=== PATIENT | female | born 1945 | race Caucasian/White ===

== ENCOUNTER 2016-02-12 19:56 | Inpatient (IN) | payer MEDICARE, MEDICAID ==
[~2016-02-12] VITALS: Ht 152.4 cm; Wt 49.9 kg
[~2016-02-12 19:56] MED LIST: ALBU8.5H2 IH; CARI350T PO; CIPR-263 PO; DIPH1TAB70 PO; FLUT16SP2 NS; FLUT1DIS3 IH; FURO80TA PO; GABA300C PO; HYDR-429 PO; LISI40TA4 PO; LORA2TAB95 PO; METR500T PO; NORTRIPTYLINE; PAXIL; PRIMPRO PO; SYNTHROID PO
[2016-02-12] MEDS ORDERED: IV NS 0.9% 2,000 ML ONE (20:20)
[2016-02-12] MEDS ORDERED: IV NS 0.9% 1,000 ML BAG IV ONE ×4 (20:30→21:30)
[2016-02-12 20:40] LABS: KETONES,URINE Negative (NEGATIVE); LEUKOCYTE ESTERASE ,URINE Moderate (NEGATIVE); PH,URINE 5.5 (5.0-8.0)
[2016-02-12 20:41] LABS: ADD UA MICROSCOPIC YES
[2016-02-12 20:42] LABS: BASOPHILS % (AUTO) 0.1 % (0.0-2.0); DIFF TOTAL % 100 %; EOSINOPHILS # (AUTO) 0.3 /CMM (0.0-0.7); HEMATOCRIT 39 % (33-45); HEMOGLOBIN 12.8 g/dL (11.5-14.8); LYMPHOCYTES # (AUTO) 1.6 /CMM (0.8-4.8); LYMPHOCYTES % (AUTO) 5.1 % (20.0-44.0); MEAN CORPUSCULAR HEMOGLOBIN 28 PG (26.0-33.0); MEAN CORPUSCULAR HGB CONC 33 g/dl (31.0-36.0); MEAN CORPUSCULAR VOLUME 85 fL (82-100); MONOCYTES # (AUTO) 1.9 /CMM (0.1-1.30); MONOCYTES % (AUTO) 6.1 % (2.0-12.0); NEUTROPHILS # (AUTO) 27.4 /CMM (1.8-8.9); NEUTROPHILS % (AUTO) 87.7 % (43.0-81.0); PLATELET COUNT (AUTO) 562 /CMM (150-450); RED BLOOD CELL COUNT(AUTO) 4.56 MIL/uL (4.0-5.2)
[2016-02-12 20:44] LABS: WHITE BLOOD COUNT (AUTO) 31.2 K/uL (4.3-11.0)
[2016-02-12 20:49] LABS: ADD URINE CULTURE YES; HYALINE CASTS, URINE Few /LPF (None Seen); MUCUS,URINE Moderate /LPF (None Seen)
[2016-02-12 20:56] LABS: ANION GAP 18 (5-14); CALCIUM, SERUM 8.5 mg/dL (8.5-10.1); CARBON DIOXIDE 24 mmol/L (21-32); CHLORIDE 95 mmol/L (98-107); CREATININE 2.3 mg/dL (0.6-1.3); GFR 21 mL/min (>60); GLUCOSE 130 mg/dL (74-106); POTASSIUM 3.6 mmol/L (3.5-5.1); SODIUM SERUM 133 mmol/L (136-145); UREA NITROGEN, BLOOD 42 mg/dL (7-18)
[2016-02-12 21:00] LABS: INR 1.05 (0.87-1.13)
[2016-02-12] MEDS ORDERED: VANCOMYCIN 1 GM in IV D5W 250 ML IV ONE (21:00)
[2016-02-12] MEDS ORDERED: LEVOFLOXACIN 750 MG /D5W 150ML PIGGYBACK IV ONE (21:00)
[2016-02-12 21:02] LABS: ALANINE AMINOTRANSFERASE 20 U/L (12-78); ALBUMIN 3.6 g/dL (3.4-5.0); ASPARTATE AMINOTRANSFERASE 23 U/L (15-37); BILIRUBIN,DIRECT 0.1 mg/dL (0.0-0.2); BILIRUBIN,TOTAL 0.5 mg/dL (0.2-1.0); INDIRECT BILIRUBIN 0.4 mg/dL (0.0-1.1); TOTAL PROTEIN, SERUM 6.9 g/dL (6.4-8.2)
[2016-02-12 21:04] LABS: TROPONIN I < 0.017 ng/mL (0.00-0.056)
[2016-02-12] MEDS ORDERED: VANCOMYCIN 1 GM VIAL ONE (21:08)
[2016-02-12] MEDS ORDERED: LEVOFLOXACIN 750 MG /D5W 150ML 150 ML IV ONE (21:09)
[2016-02-12] MEDS ORDERED: IV SET PRIMARY PUMP SET 1 EA INFUS.SET MC ONE (21:09)
[2016-02-12] MEDS ORDERED: IV D5W 250 ML IV ONE (21:09)
[2016-02-12 21:10] LABS: EOSINOPHILS % (MANUAL) 1 % (0-4); LYMPHOCYTES % (MANUAL) 6 % (16-48)
[2016-02-12 21:12] LABS: PLATELET ESTIMATE INCREASED
[2016-02-12 21:14] LABS: ANISOCYTOSIS 1+
[2016-02-12 21:15] LABS: LACTIC ACID 1.9 mmol/L (0.4-2.0)
[2016-02-12] MEDS ORDERED: IV NS 0.9% 1,000 ML ONE (21:23)
[2016-02-12 23:40] VITALS: BP 128/58
[2016-02-13] VITALS (7 sets, daily range): BP systolic 112–151; BP diastolic 40–80
[2016-02-13] MEDS ORDERED: ONDANSETRON HCL/PF 4 MG/2 ML VIAL ONE (00:52)
[2016-02-13] MEDS: ONDANSETRON HCL/PF 4 MG/2 ML VIAL IVP PRN (00:58)
[2016-02-13] MEDS ORDERED: ZOLPIDEM TARTRATE 5 MG TABLET PO PRN (01:00)
[2016-02-13] MEDS ORDERED: Z GUARD REMEDY 2 OZ OINT TP PRN (01:00)
[2016-02-13] MEDS ORDERED: HYDROCODONE/APAP 5/325MG 1 EACH TABLET PO PRN (01:00)
[2016-02-13] MEDS ORDERED: MAG HYDROX/AL HYDROX/SIMETH 30 ML UDC PO PRN (01:00)
[2016-02-13] MEDS ORDERED: MORPHINE SULFATE INJ 2 MG/ML DISP.SYRIN IV PRN (01:00)
[2016-02-13] MEDS ORDERED: MAGNESIUM HYDROXIDE 30 ML UDC PO PRN (01:00)
[2016-02-13] MEDS ORDERED: ALBUTEROL SULFATE 8 GM HFA.AER.AD IH PRN (01:30)
[2016-02-13] MEDS ORDERED: DICYCLOMINE HCL 10 MG CAPSULE PO PRN (03:00)
[2016-02-13] MEDS ORDERED: DICY20TA11 PO (03:27)
[2016-02-13] MEDS ORDERED: OMEP20TA20 PO (03:28)
[2016-02-13] MEDS ORDERED: HYDR473S4 PO (03:29)
[2016-02-13] MEDS ORDERED: IV SET PRIMARY PUMP SET 1 EA INFUS.SET MC ONE (03:32)
[2016-02-13] MEDS ORDERED: IV NS 0.9% 1,000 ML ONE (03:32)
[2016-02-13] MEDS: IV NS 0.9% 1,000 ML IV PRN ×2 (03:41→21:45)
[2016-02-13] MEDS ORDERED: VANCOMYCIN FOR PO/GT USE 500 MG ORAL.SUSP PO SCH (06:00)
[2016-02-13] MEDS ORDERED: VANCOMYCIN HCL 125 MG/2.5 ML ORAL.SUSP ONE (06:05)
[2016-02-13 06:56] LABS: DIFF TOTAL % 100 %; HEMATOCRIT 36 % (33-45); LYMPHOCYTES # (AUTO) 0.8 /CMM (0.8-4.8); LYMPHOCYTES % (AUTO) 3.1 % (20.0-44.0); MEAN CORPUSCULAR HEMOGLOBIN 28 PG (26.0-33.0); MEAN CORPUSCULAR HGB CONC 33 g/dl (31.0-36.0); MEAN CORPUSCULAR VOLUME 85 fL (82-100); MONOCYTES # (AUTO) 0.9 /CMM (0.1-1.30); MONOCYTES % (AUTO) 3.6 % (2.0-12.0); NEUTROPHILS # (AUTO) 23.9 /CMM (1.8-8.9); NEUTROPHILS % (AUTO) 93.3 % (43.0-81.0); PLATELET COUNT (AUTO) 440 /CMM (150-450); RED BLOOD CELL COUNT(AUTO) 4.27 MIL/uL (4.0-5.2); WHITE BLOOD COUNT (AUTO) 25.6 K/uL (4.3-11.0)
[2016-02-13 07:32] LABS: CALCIUM, SERUM 7.9 mg/dL (8.5-10.1); CREATININE 1.5 mg/dL (0.6-1.3); PHOSPHORUS 3.8 mg/dL (2.5-4.9)
[2016-02-13 09:06] LABS: BAND % (MANUAL) 3 % (0.0-5.0); LYMPHOCYTES % (MANUAL) 4 % (16-48)
[2016-02-13 09:07] LABS: PLATELET ESTIMATE INCREASED
[2016-02-13] MEDS: HYDROCODONE/APAP 10/325MG 1 EA TABLET PO PRN ×3 (10:00→21:49)
[2016-02-13] MEDS: PANTOPRAZOLE 40 MG VIAL IV SCH (10:00)
[2016-02-13] MEDS ORDERED: SECONDARY IV SET 1 EA INFUS.SET MC ONE (10:51)
[2016-02-13] MEDS: FUROSEMIDE 20 MG TABLET PO SCH (10:57)
[2016-02-13] MEDS: CARISOPRODOL 350 MG TABLET PO SCH ×3 (10:57→16:59)
[2016-02-13] MEDS: Magnesium 1GM/D5W 100ML PREMIX 100 ML IV SCH ×2 (10:57→14:48)
[2016-02-13] MEDS: LISINOPRIL (20MG) 20 MG TABLET PO SCH (10:58)
[2016-02-13] MEDS: GABAPENTIN 300 MG CAPSULE PO SCH (10:58)
[2016-02-13] MEDS ORDERED: LEVOFLOXACIN 750 MG /D5W 150ML 750 MG in PREMIX 1 EA IV SCH ×2 (11:00→13:00)
[2016-02-13] MEDS: FLUTICASONE/SALMETEROL DISKUS IH SCH ×2 (13:20→16:59)
[2016-02-13] MEDS: FLUTICASONE PROPIONATE 16 GM BOTTLE NS SCH (13:21)
[2016-02-13] MEDS: METRONIDAZOLE 500MG/ NS 100ML 500 MG in PREMIX 1 EA IV SCH ×3 (13:21→23:51)
[2016-02-13] MEDS: NEOMY SULF/BACITRAC ZN/POLY 15 GM TUBE TP SCH (13:21)
[2016-02-13] MEDS: VANCOMYCIN HCL 125 MG/2.5 ML ORAL.SUSP PO SCH ×3 (15:49→21:44)
[2016-02-14] VITALS: BP 127/41
[2016-02-14] MEDS: HYDROCODONE/APAP 10/325MG 1 EA TABLET PO PRN ×3 (03:34→17:59)
[2016-02-14 04:00] VITALS: BP 151/52
[2016-02-14 04:29] VITALS: BP 151/52
[2016-02-14] MEDS: METRONIDAZOLE 500MG/ NS 100ML 500 MG in PREMIX 1 EA IV SCH ×3 (05:14→17:59)
[2016-02-14 06:46] LABS: DIFF TOTAL % 100 %; HEMATOCRIT 33 % (33-45); LYMPHOCYTES # (AUTO) 0.9 /CMM (0.8-4.8); LYMPHOCYTES % (AUTO) 2.8 % (20.0-44.0); MEAN CORPUSCULAR HEMOGLOBIN 28 PG (26.0-33.0); MEAN CORPUSCULAR HGB CONC 33 g/dl (31.0-36.0); MEAN CORPUSCULAR VOLUME 86 fL (82-100); MONOCYTES # (AUTO) 1.8 /CMM (0.1-1.30); MONOCYTES % (AUTO) 5.8 % (2.0-12.0); NEUTROPHILS # (AUTO) 28.2 /CMM (1.8-8.9); NEUTROPHILS % (AUTO) 91.4 % (43.0-81.0); PLATELET COUNT (AUTO) 387 /CMM (150-450); RED BLOOD CELL COUNT(AUTO) 3.89 MIL/uL (4.0-5.2)
[2016-02-14 07:24] LABS: PHOSPHORUS 2.7 mg/dL (2.5-4.9); POTASSIUM 3.3 mmol/L (3.5-5.1)
[2016-02-14 07:35] LABS: WHITE BLOOD COUNT (AUTO) 30.8 K/uL (4.3-11.0)
[2016-02-14 08:00] VITALS: BP 158/71
[2016-02-14] MEDS: VANCOMYCIN HCL 125 MG/2.5 ML ORAL.SUSP PO SCH ×4 (08:37→20:48)
[2016-02-14] MEDS: GABAPENTIN 300 MG CAPSULE PO SCH (08:37)
[2016-02-14] MEDS: PANTOPRAZOLE 40 MG VIAL IV SCH (08:37)
[2016-02-14] MEDS: FUROSEMIDE 20 MG TABLET PO SCH (08:38)
[2016-02-14] MEDS: CARISOPRODOL 350 MG TABLET PO SCH ×2 (08:38→20:48)
[2016-02-14] MEDS: LISINOPRIL (20MG) 20 MG TABLET PO SCH (08:38)
[2016-02-14 08:44] LABS: ANISOCYTOSIS 1+; BAND % (MANUAL) 2 % (0.0-5.0); LYMPHOCYTES % (MANUAL) 7 % (16-48); PLATELET ESTIMATE ADEQUATE
[2016-02-14] MEDS: NEOMY SULF/BACITRAC ZN/POLY 15 GM TUBE TP SCH (08:44)
[2016-02-14] MEDS: FLUTICASONE PROPIONATE 16 GM BOTTLE NS SCH (08:45)
[2016-02-14] MEDS: FLUTICASONE/SALMETEROL DISKUS IH SCH ×2 (08:46→18:00)
[2016-02-14] MEDS ORDERED: POTASSIUM CHLORIDE 20 MEQ TAB.PRT.SR PO ONE (10:00)
[2016-02-14] MEDS ORDERED: POTASSIUM CL. PREMIX PERIPHER. 50 ML IV SCH (11:30)
[2016-02-14 16:00] VITALS: BP 137/56
[2016-02-14 20:00] VITALS: BP 148/49
[2016-02-14] MEDS ORDERED: LEVOFLOXACIN 750 MG /D5W 150ML 750 MG in PREMIX 1 EA IV SCH (21:00)
[2016-02-14] MEDS: LORAZEPAM 1 MG TABLET PO PRN (22:45)
[2016-02-14] MEDS: ACETAMINOPHEN 325 MG TABLET PO PRN (22:48)
[2016-02-15] MEDS: HYDROCODONE/APAP 10/325MG 1 EA TABLET PO PRN ×4 (00:02→16:43)
[2016-02-15] MEDS: METRONIDAZOLE 500MG/ NS 100ML 500 MG in PREMIX 1 EA IV SCH ×4 (00:02→18:22)
[2016-02-15 04:00] VITALS: BP 157/88
[2016-02-15] MEDS: CARISOPRODOL 350 MG TABLET PO SCH ×3 (04:31→20:57)
[2016-02-15 06:35] LABS: BASOPHILS # (AUTO) 0.1 /CMM (0.0-0.2); BASOPHILS % (AUTO) 0.2 % (0.0-2.0); DIFF TOTAL % 100 %; EOSINOPHILS # (AUTO) 0.1 /CMM (0.0-0.7); EOSINOPHILS % (AUTO) 0.2 % (0.0-6.0); HEMATOCRIT 32 % (33-45); HEMOGLOBIN 10.9 g/dL (11.5-14.8); LYMPHOCYTES # (AUTO) 1.3 /CMM (0.8-4.8); LYMPHOCYTES % (AUTO) 4.2 % (20.0-44.0); MEAN CORPUSCULAR HEMOGLOBIN 29 PG (26.0-33.0); MEAN CORPUSCULAR HGB CONC 34 g/dl (31.0-36.0); MEAN CORPUSCULAR VOLUME 86 fL (82-100); MONOCYTES # (AUTO) 1.8 /CMM (0.1-1.30); MONOCYTES % (AUTO) 5.7 % (2.0-12.0); NEUTROPHILS # (AUTO) 28.1 /CMM (1.8-8.9); NEUTROPHILS % (AUTO) 89.7 % (43.0-81.0); PLATELET COUNT (AUTO) 362 /CMM (150-450); RED BLOOD CELL COUNT(AUTO) 3.79 MIL/uL (4.0-5.2)
[2016-02-15 06:52] LABS: CALCIUM, SERUM 7.9 mg/dL (8.5-10.1); CREATININE 0.8 mg/dL (0.6-1.3); PHOSPHORUS 1.8 mg/dL (2.5-4.9); POTASSIUM 3.1 mmol/L (3.5-5.1)
[2016-02-15 07:37] LABS: WHITE BLOOD COUNT (AUTO) 31.3 K/uL (4.3-11.0)
[2016-02-15 08:00] VITALS: BP 139/58
[2016-02-15 08:05] LABS: ANISOCYTOSIS 1+; BAND % (MANUAL) 1 % (0.0-5.0); LYMPHOCYTES % (MANUAL) 1 % (16-48)
[2016-02-15 08:07] LABS: HYPOCHROMASIA 1+
[2016-02-15 08:09] LABS: PLATELET ESTIMATE ADEQUATE
[2016-02-15] MEDS: FLUTICASONE PROPIONATE 16 GM BOTTLE NS SCH (09:00)
[2016-02-15] MEDS: FLUTICASONE/SALMETEROL DISKUS IH SCH ×2 (09:00→17:00)
[2016-02-15] MEDS: VANCOMYCIN HCL 125 MG/2.5 ML ORAL.SUSP PO SCH ×4 (09:00→20:57)
[2016-02-15] MEDS: NEOMY SULF/BACITRAC ZN/POLY 15 GM TUBE TP SCH (09:00)
[2016-02-15] MEDS: PANTOPRAZOLE 40 MG VIAL IV SCH (09:17)
[2016-02-15] MEDS: GABAPENTIN 300 MG CAPSULE PO SCH (09:24)
[2016-02-15] MEDS: LISINOPRIL (20MG) 20 MG TABLET PO SCH (09:26)
[2016-02-15] MEDS: FUROSEMIDE 20 MG TABLET PO SCH (09:27)
[2016-02-15] MEDS ORDERED: POTASSIUM CHLORIDE 20 MEQ TAB.PRT.SR PO SCH (10:00)
[2016-02-15] MEDS ORDERED: POTASSIUM PHOSPHATE MM 15 MMOL in IV D5W 250 ML IV SCH (10:00)
[2016-02-15] MEDS: Magnesium 1GM/D5W 100ML PREMIX 100 ML IV SCH ×4 (12:40→18:40)
[2016-02-15] MEDS: POTASSIUM PHOSPHATE MM 7.5 MMOL in IV D5W 100 ML IV SCH ×2 (12:40→16:02)
[2016-02-15] MEDS ORDERED: SECONDARY IV SET 1 EA INFUS.SET MC ONE (12:42)
[2016-02-15] MEDS ORDERED: IV SET PRIMARY PUMP SET 1 EA INFUS.SET MC ONE (12:44)
[2016-02-15] MEDS: POTASSIUM CHLORIDE 20 MEQ TAB.PRT.SR PO SCH ×2 (14:10→18:47)
[2016-02-15 16:00] VITALS: BP 151/71
[2016-02-15 20:00] VITALS: BP 126/54
[2016-02-16] MEDS ORDERED: IV NS 0.9% 250 ML IV ONE (00:03)
[2016-02-16] MEDS ORDERED: IV SET PRIMARY PUMP SET 1 EA INFUS.SET MC ONE (00:03)
[2016-02-16] MEDS ORDERED: SECONDARY IV SET 1 EA INFUS.SET MC ONE ×2 (00:03→11:43)
[2016-02-16] MEDS: METRONIDAZOLE 500MG/ NS 100ML 500 MG in PREMIX 1 EA IV SCH ×5 (00:13→23:10)
[2016-02-16] MEDS: HYDROCODONE/APAP 10/325MG 1 EA TABLET PO PRN ×5 (00:13→23:12)
[2016-02-16] MEDS: ONDANSETRON HCL/PF 4 MG/2 ML VIAL IVP PRN ×3 (00:24→17:00)
[2016-02-16] MEDS: LORAZEPAM 1 MG TABLET PO PRN ×2 (00:25→23:11)
[2016-02-16 04:00] VITALS: BP 125/54
[2016-02-16] MEDS: CARISOPRODOL 350 MG TABLET PO SCH ×3 (05:13→20:35)
[2016-02-16 06:38] LABS: BASOPHILS % (AUTO) 0.2 % (0.0-2.0); DIFF TOTAL % 100 %; EOSINOPHILS # (AUTO) 0.2 /CMM (0.0-0.7); HEMATOCRIT 33 % (33-45); LYMPHOCYTES # (AUTO) 1.6 /CMM (0.8-4.8); LYMPHOCYTES % (AUTO) 7.6 % (20.0-44.0); MEAN CORPUSCULAR HEMOGLOBIN 29 PG (26.0-33.0); MEAN CORPUSCULAR HGB CONC 33 g/dl (31.0-36.0); MEAN CORPUSCULAR VOLUME 86 fL (82-100); MONOCYTES # (AUTO) 1.2 /CMM (0.1-1.30); MONOCYTES % (AUTO) 5.7 % (2.0-12.0); NEUTROPHILS # (AUTO) 17.7 /CMM (1.8-8.9); NEUTROPHILS % (AUTO) 85.5 % (43.0-81.0); PLATELET COUNT (AUTO) 350 /CMM (150-450); RED BLOOD CELL COUNT(AUTO) 3.84 MIL/uL (4.0-5.2); WHITE BLOOD COUNT (AUTO) 20.7 K/uL (4.3-11.0)
[2016-02-16 06:49] LABS: CALCIUM, SERUM 8.1 mg/dL (8.5-10.1); CREATININE 0.8 mg/dL (0.6-1.3); PHOSPHORUS 2.4 mg/dL (2.5-4.9); POTASSIUM 4.1 mmol/L (3.5-5.1)
[2016-02-16 08:00] VITALS: BP 152/75
[2016-02-16] MEDS: FLUTICASONE PROPIONATE 16 GM BOTTLE NS SCH (08:46)
[2016-02-16] MEDS: FLUTICASONE/SALMETEROL DISKUS IH SCH ×2 (08:46→16:53)
[2016-02-16] MEDS: VANCOMYCIN HCL 125 MG/2.5 ML ORAL.SUSP PO SCH ×4 (08:47→20:35)
[2016-02-16] MEDS: FUROSEMIDE 20 MG TABLET PO SCH (08:50)
[2016-02-16] MEDS: GABAPENTIN 300 MG CAPSULE PO SCH (08:50)
[2016-02-16] MEDS: LISINOPRIL (20MG) 20 MG TABLET PO SCH (08:51)
[2016-02-16] MEDS: PANTOPRAZOLE 40 MG VIAL IV SCH (08:51)
[2016-02-16] MEDS: NEOMY SULF/BACITRAC ZN/POLY 15 GM TUBE TP SCH (08:57)
[2016-02-16] MEDS ORDERED: Sodium Phosphate 15 MMOL in IV D5W 250 ML IV ONE (11:00)
[2016-02-16] MEDS: LEVOTHYROXINE SODIUM 125 MCG TABLET PO SCH (11:47)
[2016-02-16 16:00] VITALS: BP 125/63
[2016-02-16] MEDS: PREGABALIN 25 MG CAPSULE PO SCH (16:52)
[2016-02-16] MEDS: DIPHENOXYLATE HCL/ATROP SULF 1 UDTAB TABLET PO PRN ×2 (17:30→23:26)
[2016-02-16 20:00] VITALS: BP 133/58
[2016-02-17] MEDS ORDERED: HYDROCODONE BIT/HOMATROPINE 5 ML UDC ONE ×2 (02:08→05:39)
[2016-02-17] MEDS ORDERED: GUAIFENESIN LA 600 MG TABLET.SA PO ONE ×2 (02:08→05:39)
[2016-02-17] MEDS: GUAIFENESIN LA 600 MG TABLET.SA PO PRN ×2 (02:13→18:35)
[2016-02-17] MEDS: HYDROCODONE BIT/HOMATROPINE 5 ML UDC PO PRN ×5 (02:13→21:54)
[2016-02-17 04:00] VITALS: BP 134/52
[2016-02-17] MEDS: METRONIDAZOLE 500MG/ NS 100ML 500 MG in PREMIX 1 EA IV SCH ×3 (05:34→18:33)
[2016-02-17] MEDS: CARISOPRODOL 350 MG TABLET PO SCH ×3 (05:34→20:38)
[2016-02-17] MEDS: DIPHENOXYLATE HCL/ATROP SULF 1 UDTAB TABLET PO PRN ×2 (05:34→10:26)
[2016-02-17 06:28] LABS: CALCIUM, SERUM 8.1 mg/dL (8.5-10.1); CREATININE 0.8 mg/dL (0.6-1.3); PHOSPHORUS 3.5 mg/dL (2.5-4.9)
[2016-02-17] MEDS: HYDROCODONE/APAP 10/325MG 1 EA TABLET PO PRN ×5 (06:47→23:58)
[2016-02-17] MEDS: VANCOMYCIN HCL 125 MG/2.5 ML ORAL.SUSP PO SCH ×4 (07:36→20:38)
[2016-02-17] MEDS: PANTOPRAZOLE 40 MG VIAL IV SCH (07:36)
[2016-02-17] MEDS: LISINOPRIL (20MG) 20 MG TABLET PO SCH (07:37)
[2016-02-17] MEDS: GABAPENTIN 300 MG CAPSULE PO SCH (07:37)
[2016-02-17] MEDS: FUROSEMIDE 20 MG TABLET PO SCH (07:37)
[2016-02-17] MEDS: PREGABALIN 25 MG CAPSULE PO SCH ×2 (07:37→17:12)
[2016-02-17] MEDS: LEVOTHYROXINE SODIUM 125 MCG TABLET PO SCH (07:37)
[2016-02-17] MEDS: FLUTICASONE/SALMETEROL DISKUS IH SCH ×2 (07:38→17:11)
[2016-02-17] MEDS: FLUTICASONE PROPIONATE 16 GM BOTTLE NS SCH (07:38)
[2016-02-17] MEDS: NEOMY SULF/BACITRAC ZN/POLY 15 GM TUBE TP SCH (07:39)
[2016-02-17 07:42] LABS: EOSINOPHILS # (AUTO) 0.2 /CMM (0.0-0.7); LYMPHOCYTES # (AUTO) 0.8 /CMM (0.8-4.8); MONOCYTES # (AUTO) 0.8 /CMM (0.1-1.30)
[2016-02-17 07:44] LABS: BASOPHILS % (AUTO) 0.2 % (0.0-2.0); DIFF TOTAL % 100 %; EOSINOPHILS % (AUTO) 1.3 % (0.0-6.0); HEMATOCRIT 36 % (33-45); HEMOGLOBIN 11.6 g/dL (11.5-14.8); MEAN CORPUSCULAR HEMOGLOBIN 28 PG (26.0-33.0); MEAN CORPUSCULAR HGB CONC 33 g/dl (31.0-36.0); MEAN CORPUSCULAR VOLUME 86 fL (82-100); MONOCYTES % (AUTO) 5.3 % (2.0-12.0); NEUTROPHILS # (AUTO) 13.6 /CMM (1.8-8.9); NEUTROPHILS % (AUTO) 88.2 % (43.0-81.0); PLATELET COUNT (AUTO) 329 /CMM (150-450); RED BLOOD CELL COUNT(AUTO) 4.11 MIL/uL (4.0-5.2); WHITE BLOOD COUNT (AUTO) 15.4 K/uL (4.3-11.0)
[2016-02-17 08:00] VITALS: BP 150/68
[2016-02-17] MEDS ORDERED: ALBUTEROL FS 2.5 MG/0.5 ML VIAL.NEB NEB PRN (11:00)
[2016-02-17] MEDS ORDERED: IPRATROPIUM NEB FS 0.5 MG/2.5 ML AMPUL.NEB NEB PRN (11:00)
[2016-02-17] MEDS ORDERED: IV NS 0.9% 1,000 ML BAG IV ONE (11:00)
[2016-02-17 11:37] LABS: ANISOCYTOSIS 1+; EOSINOPHILS % (MANUAL) 3 % (0-4); LYMPHOCYTES % (MANUAL) 4 % (16-48); PLATELET ESTIMATE ADEQUATE
[2016-02-17 11:50] LABS: ALBUMIN 2.9 g/dL (3.4-5.0); BILIRUBIN,DIRECT 0.1 mg/dL (0.0-0.2); BILIRUBIN,TOTAL 0.2 mg/dL (0.2-1.0); INDIRECT BILIRUBIN 0.1 mg/dL (0.0-1.1)
[2016-02-17 11:54] LABS: LACTIC ACID 1.5 mmol/L (0.4-2.0)
[2016-02-17 12:40] LABS: ABG BASE EXCESS 1.6 mmol/L; ABG HCO3 25.2 mmol/L; ABG PH 7.463 (7.350-7.450); ABG PO2 82.5 mmHg (75.0-100.0); ABG TOTAL HEMOGLOBIN 11.5 G/dL (12.0-16.0); ALLEN TEST Pass; AaDO2 24.1 mmHg; O2Hb 94.9 % (94.0-97.0)
[2016-02-17] MEDS ORDERED: methylPREDNISolone SOD SUCC 125 MG/2ML VIAL IV SCH (13:00)
[2016-02-17] MEDS ORDERED: SECONDARY IV SET 1 EA INFUS.SET MC ONE (13:40)
[2016-02-17] MEDS: POTASSIUM CHLORIDE 20 MEQ TAB.PRT.SR PO SCH ×3 (13:44→17:09)
[2016-02-17] MEDS: Magnesium 1GM/D5W 100ML PREMIX 100 ML IV SCH ×2 (14:17→17:09)
[2016-02-17] MEDS: LEVOFLOXACIN 750 MG /D5W 150ML 150 ML IV SCH (15:00)
[2016-02-17 16:00] VITALS: BP 166/91
[2016-02-17] MEDS: LORAZEPAM 1 MG TABLET PO PRN ×2 (18:26→21:54)
[2016-02-17 20:00] VITALS: BP 129/63
[2016-02-17] MEDS ORDERED: IV SET PRIMARY PUMP SET 1 EA INFUS.SET MC ONE (22:05)
[2016-02-17] MEDS ORDERED: IV NS 0.9% 250 ML IV ONE (22:05)
[2016-02-18] MEDS: METRONIDAZOLE 500MG/ NS 100ML 500 MG in PREMIX 1 EA IV SCH ×5 (00:09→23:23)
[2016-02-18] MEDS: HYDROCODONE BIT/HOMATROPINE 5 ML UDC PO PRN ×5 (03:08→22:05)
[2016-02-18] MEDS: LORAZEPAM 1 MG TABLET PO PRN ×4 (03:09→23:22)
[2016-02-18] MEDS: CARISOPRODOL 350 MG TABLET PO SCH ×3 (06:13→20:09)
[2016-02-18] MEDS: HYDROCODONE/APAP 10/325MG 1 EA TABLET PO PRN ×3 (06:14→22:05)
[2016-02-18] MEDS: GUAIFENESIN LA 600 MG TABLET.SA PO PRN ×2 (06:14→20:09)
[2016-02-18 07:04] LABS: BASOPHILS % (AUTO) 0.1 % (0.0-2.0); DIFF TOTAL % 100 %; EOSINOPHILS % (AUTO) 0.2 % (0.0-6.0); HEMATOCRIT 29 % (33-45); HEMOGLOBIN 9.6 g/dL (11.5-14.8); LYMPHOCYTES # (AUTO) 0.5 /CMM (0.8-4.8); LYMPHOCYTES % (AUTO) 4.6 % (20.0-44.0); MEAN CORPUSCULAR HEMOGLOBIN 29 PG (26.0-33.0); MEAN CORPUSCULAR HGB CONC 34 g/dl (31.0-36.0); MEAN CORPUSCULAR VOLUME 85 fL (82-100); MONOCYTES # (AUTO) 1.5 /CMM (0.1-1.30); MONOCYTES % (AUTO) 13.4 % (2.0-12.0); NEUTROPHILS # (AUTO) 9.4 /CMM (1.8-8.9); NEUTROPHILS % (AUTO) 81.7 % (43.0-81.0); PLATELET COUNT (AUTO) 303 /CMM (150-450); RED BLOOD CELL COUNT(AUTO) 3.39 MIL/uL (4.0-5.2); WHITE BLOOD COUNT (AUTO) 11.5 K/uL (4.3-11.0)
[2016-02-18 07:09] LABS: CALCIUM, SERUM 7.9 mg/dL (8.5-10.1); CREATININE 0.7 mg/dL (0.6-1.3); PHOSPHORUS 2.9 mg/dL (2.5-4.9); POTASSIUM 3.6 mmol/L (3.5-5.1)
[2016-02-18] MEDS: LEVOTHYROXINE SODIUM 125 MCG TABLET PO SCH (07:27)
[2016-02-18 08:00] VITALS: BP 152/69
[2016-02-18] MEDS: PANTOPRAZOLE 40 MG VIAL IV SCH (09:02)
[2016-02-18] MEDS: FLUTICASONE/SALMETEROL DISKUS IH SCH ×2 (09:02→17:02)
[2016-02-18] MEDS: FLUTICASONE PROPIONATE 16 GM BOTTLE NS SCH (09:03)
[2016-02-18] MEDS: NEOMY SULF/BACITRAC ZN/POLY 15 GM TUBE TP SCH (09:03)
[2016-02-18] MEDS: GABAPENTIN 300 MG CAPSULE PO SCH (09:04)
[2016-02-18] MEDS: PREGABALIN 25 MG CAPSULE PO SCH ×2 (09:04→17:02)
[2016-02-18] MEDS: FUROSEMIDE 20 MG TABLET PO SCH (09:04)
[2016-02-18] MEDS: LISINOPRIL (20MG) 20 MG TABLET PO SCH (09:04)
[2016-02-18] MEDS: DIPHENOXYLATE HCL/ATROP SULF 1 UDTAB TABLET PO PRN ×2 (09:05→15:51)
[2016-02-18] MEDS: VANCOMYCIN HCL 125 MG/2.5 ML ORAL.SUSP PO SCH ×4 (09:05→20:09)
[2016-02-18] MEDS: DICYCLOMINE HCL 10 MG CAPSULE PO PRN ×2 (12:05→20:09)
[2016-02-18 14:00] VITALS: BP 130/64
[2016-02-18 16:00] VITALS: BP 130/64
[2016-02-18 20:00] VITALS: BP_SYST 134; BP_SYST 140; BP_DIAS 63; BP_DIAS 84
[2016-02-18] MEDS: ACETAMINOPHEN 325 MG TABLET PO PRN (20:09)
[2016-02-19] MEDS: HYDROCODONE/APAP 10/325MG 1 EA TABLET PO PRN ×4 (03:19→22:28)
[2016-02-19 04:00] VITALS: BP 128/65
[2016-02-19] MEDS: CARISOPRODOL 350 MG TABLET PO SCH ×3 (04:09→20:14)
[2016-02-19] MEDS: LORAZEPAM 1 MG TABLET PO PRN ×4 (05:20→23:24)
[2016-02-19] MEDS: HYDROCODONE BIT/HOMATROPINE 5 ML UDC PO PRN ×5 (05:20→23:25)
[2016-02-19] MEDS ORDERED: IV NS 0.9% 250 ML IV ONE (05:22)
[2016-02-19] MEDS: METRONIDAZOLE 500MG/ NS 100ML 500 MG in PREMIX 1 EA IV SCH (05:25)
[2016-02-19 06:18] LABS: BASOPHILS % (AUTO) 0.1 % (0.0-2.0); DIFF TOTAL % 100 %; EOSINOPHILS % (AUTO) 0.2 % (0.0-6.0); HEMATOCRIT 31 % (33-45); HEMOGLOBIN 10.3 g/dL (11.5-14.8); LYMPHOCYTES # (AUTO) 0.8 /CMM (0.8-4.8); LYMPHOCYTES % (AUTO) 7.8 % (20.0-44.0); MEAN CORPUSCULAR HEMOGLOBIN 29 PG (26.0-33.0); MEAN CORPUSCULAR HGB CONC 33 g/dl (31.0-36.0); MEAN CORPUSCULAR VOLUME 85 fL (82-100); MONOCYTES # (AUTO) 1.6 /CMM (0.1-1.30); MONOCYTES % (AUTO) 14.3 % (2.0-12.0); NEUTROPHILS # (AUTO) 8.4 /CMM (1.8-8.9); NEUTROPHILS % (AUTO) 77.6 % (43.0-81.0); PLATELET COUNT (AUTO) 282 /CMM (150-450); RED BLOOD CELL COUNT(AUTO) 3.62 MIL/uL (4.0-5.2); WHITE BLOOD COUNT (AUTO) 10.9 K/uL (4.3-11.0)
[2016-02-19 06:31] LABS: CALCIUM, SERUM 7.5 mg/dL (8.5-10.1); CREATININE 0.8 mg/dL (0.6-1.3); POTASSIUM 3.3 mmol/L (3.5-5.1)
[2016-02-19 08:00] VITALS: BP 111/75
[2016-02-19] MEDS: PREGABALIN 25 MG CAPSULE PO SCH ×2 (08:22→17:13)
[2016-02-19] MEDS: FUROSEMIDE 20 MG TABLET PO SCH (08:22)
[2016-02-19] MEDS: PANTOPRAZOLE 40 MG VIAL IV SCH (08:22)
[2016-02-19] MEDS: LEVOTHYROXINE SODIUM 125 MCG TABLET PO SCH (08:22)
[2016-02-19] MEDS: GABAPENTIN 300 MG CAPSULE PO SCH (08:23)
[2016-02-19] MEDS: VANCOMYCIN HCL 125 MG/2.5 ML ORAL.SUSP PO SCH ×4 (08:23→20:14)
[2016-02-19] MEDS: FLUTICASONE/SALMETEROL DISKUS IH SCH ×2 (08:25→17:11)
[2016-02-19] MEDS: NEOMY SULF/BACITRAC ZN/POLY 15 GM TUBE TP SCH (08:25)
[2016-02-19] MEDS: FLUTICASONE PROPIONATE 16 GM BOTTLE NS SCH (08:26)
[2016-02-19] MEDS: LISINOPRIL (20MG) 20 MG TABLET PO SCH (08:28)
[2016-02-19] MEDS: DICYCLOMINE HCL 10 MG CAPSULE PO PRN ×3 (09:00→22:27)
[2016-02-19] MEDS: GUAIFENESIN LA 600 MG TABLET.SA PO PRN ×2 (10:00→22:28)
[2016-02-19] MEDS: METRONIDAZOLE 250 MG TABLET PO SCH ×3 (11:47→23:29)
[2016-02-19] MEDS: DIPHENOXYLATE HCL/ATROP SULF 1 UDTAB TABLET PO PRN ×2 (11:47→18:35)
[2016-02-19] MEDS ORDERED: POTASSIUM CHLORIDE 20 MEQ TAB.PRT.SR PO SCH (12:00)
[2016-02-19] MEDS ORDERED: SECONDARY IV SET 1 EA INFUS.SET MC ONE ×2 (12:08→13:58)
[2016-02-19] MEDS: LEVOFLOXACIN 750 MG /D5W 150ML 150 ML IV SCH (12:36)
[2016-02-19] MEDS: ONDANSETRON HCL/PF 4 MG/2 ML VIAL IVP PRN (15:44)
[2016-02-19 16:00] VITALS: BP 106/56
[2016-02-19 20:00] VITALS: BP 99/57
[2016-02-20] MEDS ORDERED: INSULIN REGULAR, HUMAN 100 UNIT/ML 10 ML VIAL ONE (00:56)
[2016-02-20 04:00] VITALS: BP 128/65
[2016-02-20] MEDS: HYDROCODONE BIT/HOMATROPINE 5 ML UDC PO PRN ×3 (04:33→15:28)
[2016-02-20] MEDS: LORAZEPAM 1 MG TABLET PO PRN ×2 (04:33→10:13)
[2016-02-20] MEDS: CARISOPRODOL 350 MG TABLET PO SCH ×2 (04:33→13:27)
[2016-02-20] MEDS: HYDROCODONE/APAP 10/325MG 1 EA TABLET PO PRN ×2 (05:37→11:27)
[2016-02-20] MEDS: METRONIDAZOLE 250 MG TABLET PO SCH ×2 (05:37→11:27)
[2016-02-20] MEDS: LEVOTHYROXINE SODIUM 125 MCG TABLET PO SCH (06:43)
[2016-02-20 07:17] LABS: CALCIUM, SERUM 7.5 mg/dL (8.5-10.1); CREATININE 0.7 mg/dL (0.6-1.3); POTASSIUM 3.1 mmol/L (3.5-5.1)
[2016-02-20 07:32] LABS: BASOPHILS % (AUTO) 0.1 % (0.0-2.0); DIFF TOTAL % 100 %; EOSINOPHILS # (AUTO) 0.1 /CMM (0.0-0.7); EOSINOPHILS % (AUTO) 1.4 % (0.0-6.0); HEMATOCRIT 28 % (33-45); HEMOGLOBIN 9.2 g/dL (11.5-14.8); LYMPHOCYTES # (AUTO) 0.7 /CMM (0.8-4.8); LYMPHOCYTES % (AUTO) 10.4 % (20.0-44.0); MEAN CORPUSCULAR HEMOGLOBIN 28 PG (26.0-33.0); MEAN CORPUSCULAR HGB CONC 33 g/dl (31.0-36.0); MEAN CORPUSCULAR VOLUME 85 fL (82-100); MONOCYTES # (AUTO) 1.1 /CMM (0.1-1.30); MONOCYTES % (AUTO) 15.2 % (2.0-12.0); NEUTROPHILS # (AUTO) 5.2 /CMM (1.8-8.9); NEUTROPHILS % (AUTO) 72.9 % (43.0-81.0); PLATELET COUNT (AUTO) 271 /CMM (150-450); RED BLOOD CELL COUNT(AUTO) 3.27 MIL/uL (4.0-5.2); WHITE BLOOD COUNT (AUTO) 7.2 K/uL (4.3-11.0)
[2016-02-20 07:52] VITALS: BP 109/50
[2016-02-20 08:00] VITALS: BP 109/50
[2016-02-20 08:33] VITALS: BP 109/50
[2016-02-20] MEDS: GABAPENTIN 300 MG CAPSULE PO SCH (08:33)
[2016-02-20] MEDS: LISINOPRIL (20MG) 20 MG TABLET PO SCH (08:33)
[2016-02-20] MEDS: PREGABALIN 25 MG CAPSULE PO SCH (08:33)
[2016-02-20] MEDS: FUROSEMIDE 20 MG TABLET PO SCH (08:33)
[2016-02-20] MEDS: PANTOPRAZOLE 40 MG VIAL IV SCH (08:33)
[2016-02-20] MEDS: FLUTICASONE PROPIONATE 16 GM BOTTLE NS SCH (08:34)
[2016-02-20] MEDS: FLUTICASONE/SALMETEROL DISKUS IH SCH (08:34)
[2016-02-20] MEDS: NEOMY SULF/BACITRAC ZN/POLY 15 GM TUBE TP SCH (08:35)
[2016-02-20] MEDS: VANCOMYCIN HCL 125 MG/2.5 ML ORAL.SUSP PO SCH ×2 (08:35→13:00)
[2016-02-20] MEDS ORDERED: METR250T PO (09:58)
[2016-02-20] MEDS ORDERED: LEVO750T46 PO (09:58)
[2016-02-20] MEDS: GUAIFENESIN LA 600 MG TABLET.SA PO PRN (10:12)
[2016-02-20] MEDS: DICYCLOMINE HCL 10 MG CAPSULE PO PRN ×2 (10:13→15:28)
[2016-02-20] MEDS: DIPHENOXYLATE HCL/ATROP SULF 1 UDTAB TABLET PO PRN ×2 (10:13→15:28)
[2016-02-20] MEDS ORDERED: POTASSIUM CHLORIDE 20 MEQ TAB.PRT.SR PO ONE (11:00)
== END 2016-02-20 15:57 | disposition home or self-care (01) | DRG 393 ==
LOC: ER 19:57 → TELE-TD 22:09 → MEDSG1 02-13 16:35 → TELE1 02-13 20:11 → MEDSG1 02-14 08:54
PROVIDERS: ADMIT Family Medicine; ATTEND Family Medicine
PROC: 05H633Z Insertion of Infusion Device into Left Subclavian Vein, Percutaneous Approach (ICD-10-PCS; principal; 2016-02-17)
DX: K55.9 Vascular disorder of intestine, unspecified (principal); N17.0 Acute kidney failure with tubular necrosis; J44.1 Chronic obstructive pulmonary disease with (acute) exacerbation; E87.1 Hypo-osmolality and hyponatremia; N39.0 Urinary tract infection, site not specified; K92.1 Melena; D47.3 Essential (hemorrhagic) thrombocythemia; E03.9 Hypothyroidism, unspecified; I10 Essential (primary) hypertension; I25.10 Atherosclerotic heart disease of native coronary artery without angina pectoris; M79.7 Fibromyalgia; Z87.891 Personal history of nicotine dependence; K58.9 Irritable bowel syndrome, unspecified; M19.90 Unspecified osteoarthritis, unspecified site; Z88.0 Allergy status to penicillin; K57.30 Diverticulosis of large intestine without perforation or abscess without bleeding; I73.00 Raynaud's syndrome without gangrene; M54.30 Sciatica, unspecified side; M54.9 Dorsalgia, unspecified; D72.825 Bandemia; E86.9 Volume depletion, unspecified; J06.9 Acute upper respiratory infection, unspecified
CPT/HCPCS: 36415; 36600; 70450-TC; 71010-TC; 80048-TC; 80076-TC; 81000-TC; 83605-TC; 83690-TC; 83735-TC; 83880; 84100-TC; 84484-TC; 85025-TC; 85730-TC; 87040-TC; 87045-TC; 87081-TC; 87086-TC; 93307-TC; 97001-TC; A4216; A4606; A6253; A6403; A9563; C9113; J1815; J1956; J2405; J2930; J3370; J3475; J3490; J7030; J7050; J7060; Z7610

== ENCOUNTER 2016-09-09 19:04 | Inpatient (IN) | payer MEDICARE, OTHER ==
[~2016-09-09] VITALS: Ht 152.4 cm; Wt 49.0 kg
[~2016-09-09 19:04] MED LIST changes: -CIPR-263 PO; +DICY20TA11 PO; -FURO80TA PO; +FURO80TA85 PO; -HYDR-429 PO; +HYDR-548 PO; +HYDR473S4 PO; +LEVO750T46 PO; +METR250T PO; -METR500T PO; +OMEP20TA20 PO
--- NOTE | 2016-09-09 19:17 | NUR ---
BIB RA 80 FROM HER CAR, BY-STANDER CALLED 911-- [phone]. PATIENT RECEIVED, AWAKE, ALERT AND ORIENTED, HOWEVER APPEARS WEAK. NO CHEST PAIN,. DENIES N/V. SKIN IS WARM TO TOUCH AND NON DIAPHORETIC. PT IS AFEBRILE. IV ON LEFT HAND INTACT
[2016-09-09] MEDS ORDERED: FENTANYL PF 100MCG/2ML AMPUL IV ONE (19:30)
[2016-09-09] MEDS ORDERED: IV NS 0.9% 1,000 ML BAG IV ONE (19:30)
[2016-09-09] MEDS ORDERED: FENTANYL PF 100MCG/2ML AMPUL ONE (19:32)
[2016-09-09 19:40] LABS: BASOPHILS # (AUTO) 0.1 /CMM (0.0-0.2); BASOPHILS % (AUTO) 0.5 % (0.0-2.0); EOSINOPHILS # (AUTO) 0.1 /CMM (0.0-0.7); EOSINOPHILS % (AUTO) 0.6 % (0.0-6.0); HEMATOCRIT 44 % (33-45); HEMOGLOBIN 14.9 g/dL (11.5-14.8); LYMPHOCYTES # (AUTO) 1.3 /CMM (0.8-4.8); LYMPHOCYTES % (AUTO) 6.3 % (20.0-44.0); MEAN CORPUSCULAR HEMOGLOBIN 32 PG (26.0-33.0); MEAN CORPUSCULAR HGB CONC 34 g/dl (31.0-36.0); MEAN CORPUSCULAR VOLUME 95 fL (82-100); MONOCYTES # (AUTO) 0.7 /CMM (0.1-1.30); MONOCYTES % (AUTO) 3.6 % (2.0-12.0); NEUTROPHILS # (AUTO) 18.3 /CMM (1.8-8.9); PLATELET COUNT (AUTO) 482 /CMM (150-450); RDW COEFFICIENT OF VARIATION 13.6 (11.5-15.0); RED BLOOD CELL COUNT(AUTO) 4.62 MIL/uL (4.0-5.2); WHITE BLOOD COUNT (AUTO) 20.5 K/uL (4.3-11.0)
--- NOTE | 2016-09-09 19:40 | NUR ---
REPORT GIVEN TO JACOB ANTUNEZ FOR MAYO
[2016-09-09 19:52] LABS: CALCIUM, SERUM 10.7 mg/dL (8.5-10.1); POTASSIUM 5.6 mmol/L (3.5-5.1)
[2016-09-09 19:58] LABS: ALBUMIN 4.1 g/dL (3.4-5.0); BILIRUBIN,DIRECT 0.3 mg/dL (0.0-0.2); BILIRUBIN,TOTAL 0.9 mg/dL (0.2-1.0); TOTAL PROTEIN, SERUM 7.2 g/dL (6.4-8.2)
--- NOTE | 2016-09-09 20:03 | NUR ---
Sent to CT.
[2016-09-09 20:05] LABS: CREATININE 1.6 mg/dL (0.6-1.3)
--- NOTE | 2016-09-09 20:28 | NUR ---
pt back fr CT, resp even & unlabored, on continuous monitoring.
[2016-09-09] MEDS ORDERED: FLAGYL/NS RTU 500 MG/100 ML PIGGYBACK IV ONE (20:30)
[2016-09-09] MEDS ORDERED: CIPROFLOXACIN IV RTU 400 MG in PREMIX 1 EA IV SCH (20:30)
--- NOTE | 2016-09-09 20:56 | NUR ---
16fr FC started w/ 200ml clear yellow urine obtained & sent to lab. FC d/c'd. pt tolerated procedure well w/ nad noted. pt continues to be drowsy, slow to respond to questions, on continuous pulse-ox w/ cardiac monitoring.
[2016-09-09 21:02] LABS: APPEARANCE,URINE Clear (CLEAR); BILIRUBIN,URINE SMALL (NEGATIVE); BLOOD, URINE Negative Ery/uL (NEGATIVE); COLOR,URINE Yellow (YELLOW); KETONES,URINE Negative (NEGATIVE); LEUKOCYTE ESTERASE ,URINE Negative (NEGATIVE); NITRITE, URINE Negative (NEGATIVE); PH,URINE 5.5 (5.0-8.0); PROTEIN,URINE 30 mg/dl (NEGATIVE); UGLUCOSE Negative (NEGATIVE)
[2016-09-09] MEDS ORDERED: IV NS 0.9% 1,000 ML IV PRN ×2 (21:10→22:00)
[2016-09-09] MEDS ORDERED: CIPROFLOXACIN IV RTU 200 ML IV ONE (21:22)
[2016-09-09] MEDS ORDERED: Z GUARD REMEDY 2 OZ OINT TP PRN (21:30)
[2016-09-09] MEDS ORDERED: HYDROCODONE/APAP 5/325MG 1 EACH TABLET PO PRN (21:30)
[2016-09-09] MEDS ORDERED: MAGNESIUM HYDROXIDE 30 ML UDC PO PRN (21:30)
[2016-09-09] MEDS ORDERED: ZOLPIDEM TARTRATE 5 MG TABLET PO PRN (21:30)
[2016-09-09] MEDS ORDERED: MAG HYDROX/AL HYDROX/SIMETH 30 ML UDC PO PRN (21:30)
[2016-09-09] MEDS ORDERED: ACETAMINOPHEN 325 MG TABLET PO PRN (21:30)
[2016-09-09 21:33] LABS: BACTERIA,URINE Few /HPF (None Seen); HYALINE CASTS, URINE Few /LPF (None Seen); RBC,URINE 0-2 /HPF (0-2); SQUAMOUS EPITHELIAL CELL,UR Few /HPF (None Seen); URINE AMORPHOUS URATE Few /HPF (None Seen); WBC,URINE 0-2 /HPF (0-3)
--- NOTE | 2016-09-09 21:33 | NUR ---
CALLED [employer], STAFF SUBMARINE WARFARE OFFICER WAS PAGED.
[2016-09-09 21:34] LABS: MUCUS,URINE Moderate /LPF (None Seen)
--- NOTE | 2016-09-09 21:37 | NUR ---
DR LUI ON THE PHONE WITH DR JAVED.
[2016-09-09 22:00] VITALS: BP 106/58
[2016-09-09] MEDS ORDERED: LEVOFLOXACIN 500 MG /D5W 100ML 500 MG in PREMIX 1 EA IV SCH (22:00)
[2016-09-09] MEDS ORDERED: DIPHENOXYLATE HCL/ATROP SULF 1 UDTAB TABLET PO PRN (22:00)
[2016-09-09] MEDS ORDERED: LORAZEPAM INJ 2 MG/ML VIAL IV PRN (22:00)
[2016-09-09] MEDS ORDERED: HYDROCODONE/APAP 10/325MG 1 EA TABLET PO PRN (22:00)
--- NOTE | 2016-09-09 22:21 | NUR ---
PT INCONTINENT LOOSE WATERY BROWN BM. PERINEAL CARE PROVIDED, LINENS CHANGED W/ INCONTINENTS PAD IN PLACE. ON CONTINUOUS MONITORING.
--- NOTE | 2016-09-09 22:22 | NUR ---
Report given to JACOB Harman for pt admission to [facility] 309-1 for [facility].
--- NOTE | 2016-09-09 23:05 | NUR ---
RN NOTE; PT WAS BROUGHT IN TO THE FLOOR FROM ER VIA GURNEY IN STABLE CONDITION. WILL CONT TO MONITOR AND WILL PROCEED TO THE ADMISSION.
--- NOTE | 2016-09-09 23:20 | NUR ---
RN NOTE; ADMITTED A 70Y/O F, A, OX3. ANXIOUS AND UNABLE TO CONCENTRATE. BREATHING EVENLY. NO SOB. PLACED PT ON O2 AT 2LPM FOR COMFORT. SKIN WARM AND DRY. W/ C/O ABD PAIN. ABD MILDLY DISTENDED. REPORTED JUST HAD A LOOSE BM. STILL RECEIVING IVF BOLUS FROM THE ER. IV SITE ON L HAND INTACT. SKIN CHECK DONE. VS OBTAINED AND RECORDED AND PLACED PT ON HEART MONITOR. PT UNABLE TO PROVIDE A FULL , COMPLETE MEDICAL HX DUE TO HER CONDITION . NEEDS ATTENDED. BED LOW LOCKED .CALL LIGHT WITHIN REACH. WILL CONT TO MONITOR AND WILL F/U W/ MD'S ORDERS.
[2016-09-10] VITALS (31 sets, daily range): BP systolic 26–144; BP diastolic 14–85
--- NOTE | 2016-09-10 | NUR ---
RECEIVED A CALL FROM LAB W/ CRITICAL RESULT OF 2.8. DR JAVED MADE AWARE . PER MD TO CONT WITH IV HYDRATION AND IV ATB. AND CONT TO MONITOR THE PT CLOSELY. PT REMAINED STABLE. AFEBRILE. W/ BASE LINE MENTAL STATUS. ALL VS:WNL. ON ONGOING IVF BOLUS FROM ER . WILL CONT TO MONITOR AND WILL F/U W/ MD'S ORDERS.
[2016-09-10] MEDS ORDERED: LEVOFLOXACIN 500 MG /D5W 100ML 100 ML IV ONE (00:28)
[2016-09-10] MEDS ORDERED: METRONIDAZOLE 500MG/ NS 100ML 100 ML IV ONE (00:28)
[2016-09-10] MEDS ORDERED: SENNOSIDES 8.6 MG TABLET PO PRN (00:30)
[2016-09-10] MEDS ORDERED: SODIUM POLYSTYRENE SULFONATE 15 G/60 ML BOTTLE PO ONE (00:30)
[2016-09-10] MEDS ORDERED: SODIUM POLYSTYRENE SULFONATE 15 G/60 ML BOTTLE ONE (00:46)
[2016-09-10] MEDS ORDERED: HYDROCODONE/APAP 10/325MG 1 EA TABLET ONE (00:47)
--- NOTE | 2016-09-10 00:53 | NUR ---
NORCO 10-325 GIVEN ORDERED FOR C/O ABD. PAIN. WILL CONT TO MONITOR
[2016-09-10] MEDS ORDERED: ONDANSETRON HCL/PF 4 MG/2 ML VIAL ONE (01:10)
[2016-09-10] MEDS: ONDANSETRON HCL/PF 4 MG/2 ML VIAL IVP PRN ×3 (01:11→15:58)
--- NOTE | 2016-09-10 01:11 | NUR ---
ZOFRAN IVP GIVEN ORDERED FOR C/O NAUSEA. NO EPISODE OF VOMITING. WILL CONT TO MONITOR
--- NOTE | 2016-09-10 02:20 | NUR ---
RECEIVED A CALL FROM LAB REPORTING CRITICAL LACTIC ACID REFLEX LEVEL OF 2.4. DR JAVED MADE AWARE W/ NNO. PT REMAINED STABLE. SR ON TELE MONITOR. ON ONGOING IVF HYDRATION. AFEBRILE. WILL CONT TO MONITOR.
[2016-09-10] MEDS: IV NS 0.9% 1,000 ML IV PRN ×4 (03:10→20:52)
[2016-09-10] MEDS: METRONIDAZOLE 500MG/ NS 100ML 500 MG in PREMIX 1 EA IV SCH ×3 (05:06→20:50)
[2016-09-10] MEDS ORDERED: LORAZEPAM INJ 2 MG/ML VIAL ONE (05:14)
--- NOTE | 2016-09-10 05:17 | NUR ---
ATIVAN 1MG IVP GIVEN PER PT'S REQUEST ORDERED FOR ANXIETY AND AGITATION. WILL CONT TO MONITOR.
--- NOTE | 2016-09-10 06:20 | NUR ---
RN NOTE; PT IN BED SLEEPING. AROUSES EASILY. BREATHING EVENLY. NO SOB. NAD. NO ACUTE EVENT DURING THE NIGHT. AFEBRILE. NO EPISODE OF HYPOTENSION. MEDS GIVEN ORDERED. ON ONGOING IVF HYDRATION. SR /ST ON TELE MONITOR . W/ COUPLE EPISODES OF DIARRHEA. CLEANED AND DRIED. NEEDS ATTENDED .BED LOW LOCKED. CALL LIGHT WITHIN REACH. WILL CONT TO MONITOR AND WILL ENDORSE TO AM SHIFT FOR MAYO.
[2016-09-10 06:23] LABS: HEMATOCRIT 44 % (33-45); HEMOGLOBIN 14.9 g/dL (11.5-14.8); LYMPHOCYTES # (AUTO) 0.2 /CMM (0.8-4.8); MEAN CORPUSCULAR HEMOGLOBIN 32 PG (26.0-33.0); MEAN CORPUSCULAR HGB CONC 34 g/dl (31.0-36.0); MEAN CORPUSCULAR VOLUME 95 fL (82-100); MONOCYTES # (AUTO) 0.1 /CMM (0.1-1.30); MONOCYTES % (AUTO) 1.5 % (2.0-12.0); NEUTROPHILS # (AUTO) 7.6 /CMM (1.8-8.9); NEUTROPHILS % (AUTO) 95.5 % (43.0-81.0); PLATELET COUNT (AUTO) 410 /CMM (150-450); RDW COEFFICIENT OF VARIATION 14.3 (11.5-15.0); RED BLOOD CELL COUNT(AUTO) 4.62 MIL/uL (4.0-5.2)
[2016-09-10 06:40] LABS: CALCIUM, SERUM 7.1 mg/dL (8.5-10.1); CREATININE 1.4 mg/dL (0.6-1.3); MAGNESIUM 2.2 mg/dL (1.8-2.4); PHOSPHORUS 4.7 mg/dL (2.5-4.9); POTASSIUM 3.7 mmol/L (3.5-5.1)
--- NOTE | 2016-09-10 06:40 | NUR ---
RECEIVED A CALL FROM LAB REPORTING LACTIC ACID LEVEL OF 4. ASKED LAB TO RECHECK THE LACTIC ACID AND INFORMED THE RN REGARDING THE RESULT PER CUSTOMER RETENTION REPRESENTATIVE AND CHARGE NURSE ADVICE. WILL ENDORSE TO DAY SHIFT RN TO F/U. PT CURRENTLY IN BED AWAKE AND ALERT W/ NO ACUTE CHANGES. AFEBRILE.
--- NOTE | 2016-09-10 07:29 | NUR ---
MS/RN Patient received Patient received from mine shifter. Complaining of abdominal cramps and nausea. Educated patient that the cramping was due to medication given to her during the night and this would cause her to have cramping and diarrhea. Awaiting pharmacy to verify zofran.
--- NOTE | 2016-09-10 08:26 | NUR ---
MS/RN Patient transferred. Patient transferred to ICU per Dr Pantoja for possible perforation. Report given to Remberto.
--- NOTE | 2016-09-10 08:30 | NUR ---
CONTRACT ADMINISTRATIVE ASSISTANT NOTES RECEIVED PATIENT TRANSFERRED FROM [facility] WITH DX OF HYPOTENSION , POSSIBLE PERFORATION ? SOB? , NOT IN ACUTE DISTRESS , RESPIRATIONS EVEN AND UNLABORED WITH SPO2 OF 100% VIA 2LPM NC , ST 112 ON BEDSIDE MONITOR , NOTED WITH BILATERAL LOWER EXTREMITIES NON PITTING EDEMA , ABDOMEN MILDLY TENDER WITH PAIN UPON PALPATION , AUSCULTATED X4 ABDOMINAL QUADRANTS BOWEL SOUNDS ARE ABSENT , PT NOTED WITH L EAR SCAB AND L ARM SCAB , IV OF L HAND # 18 PATENT AND INTACT WITH NS @ 150ML/HR INFUSING WELL , ALL NEEDS ATTENDED , BED ON LOW AND LOCKED POSITION , SIDE RAILS X2 ,CALL LIGHT WITHIN REACH , WILL CONTINUE TO MONITOR
[2016-09-10] MEDS: HYDROMORPHONE 1 MG/1 ML DISP.SYRIN IV PRN ×3 (08:32→21:00)
[2016-09-10] MEDS ORDERED: POLYETHYLENE GLYCOL 3350 17 GM POWD.PACK PO SCH (09:00)
--- NOTE | 2016-09-10 09:00 | NUR ---
WEB SOLUTIONS ARCHITECT NOTES SPOKE WITH DR GOMEZ , NOTIFIED PT COMPLAINING OF NAUSEA , ABDOMEN IS MILDLY TENDER , NO BOWEL SOUNDS NOTED UPON AUSCULTATION , VERIFIED DIET ORDER , PER MD CONTINUE NPO WITH MEDS .
[2016-09-10] MEDS: GABAPENTIN 300 MG CAPSULE PO SCH (09:08)
[2016-09-10] MEDS: CARISOPRODOL 350 MG TABLET PO SCH ×3 (09:08→16:00)
[2016-09-10] MEDS: PANTOPRAZOLE 40 MG TABLET.DR PO SCH (09:08)
--- NOTE | 2016-09-10 09:30 | NUR ---
RETURNED GOODS INSPECTOR NOTES BELONGINGS LIST CHECK , MULTIPLE UNKNOWN MEDICATIONS FOUND IN HER BAG , MEDICATIONS SENT TO PHARMACY FOR DISPENSING .
[2016-09-10] MEDS: FLUTICASONE PROPIONATE 16 GM BOTTLE NS SCH (09:46)
[2016-09-10] MEDS: FLUTICASONE/VILANTEROL 1 EACH BLST.W.DEV IH SCH (09:46)
--- NOTE | 2016-09-10 11:20 | NUR ---
ASSISTANT MANAGER BILINGUAL NOTES C S S REPRESENTATIVE BOBBY AT BEDSIDE , DISCUSSED LABS , ON IVF OF NS @ 150ML , NO BOWEL SOUNDS NOTED UPON AUSCULTATION , PT COMPLAINING OF NAUSEA , V/S STABLE , AFEBRILE , TRIED PLACING PERIPHERAL IV BUT UNSUCCESSFUL , PER C S S REPRESENTATIVE PUT MIDLINE AND INSERT FC . VERIFIED PREVIOUS ORDER OF REPEAT CBC AND LACTIC Q6 , PER C S S REPRESENTATIVE DC ORDER . ORDERS CARRIED OUT ,
[2016-09-10] MEDS ORDERED: ALBUTEROL FS 2.5 MG/3 ML VIAL.NEB NEB PRN (13:30)
--- NOTE | 2016-09-10 15:21 | NUR ---
MANAGER HOSPITAL NOTES NOTIFIED BOBBY COLBY REGARDING LACTIC OF 2.9 , LOW BP OF 65-55 , UPON RE ASSESSMENT BP STILL LOW , PER MERCHANDISER GIVEN NS 500ML BOLUS X1 , ORDER CARRIED OUT
[2016-09-10] MEDS ORDERED: IV NS 0.9% 500 ML IV ONE (15:30)
--- NOTE | 2016-09-10 15:46 | NUR ---
PHOTOTYPESETTER OPERATOR NOTES PT STABLE POST 500ML BOLUS , BP OF 97/53 , DENIES SOB AND DISCOMFORT , WILL CONTINUE TO MONITOR
--- NOTE | 2016-09-10 16:17 | NUR ---
CLERK CHECKER NOTES URINE SAMPLE OBTAINED VIA STRAIGHT CATHETER , NOTED WITH 600ML TEA COLORED URINE , SPECIMEN LABELED AND SENT TO LAB ,
--- NOTE | 2016-09-10 17:56 | NUR ---
ENVIRONMENTAL LEAD NOTES PAGED DR ACHARYA @ [phone] ,LEFT A MESSAGE , NOTIFIED REGARDING PENDING GI CONSULT , PT HAS ABSENT BOWEL SOUNDS UPON AUSCULTATION , NOTED WITH EPISODES OF NAUSEA , ABDOMEN MILDLY DISTENDED , WITH LOOSE BROWN STOOL X3 ,AWAITING FOR CALL BACK
--- NOTE | 2016-09-10 18:04 | NUR ---
YARN SPOOLER NOTES RECEIVED A CALL FROM DR ACHARYA , PER MD HE WILL SEETHE PT TODAY
--- NOTE | 2016-09-10 19:00 | NUR ---
FOOD EDITOR NOTES DR ACHARYA AT BEDSIDE , DISCUSSED LABS , ABDOMEN DISTENDED AND TENDER WITH NO BOWEL SOUNDS , PER MD PT DOESN'T NEED TO BE IN ICU , CAN BE TRANSFERRED TO [place] / TELE , BUT VERIFY WITH PRIMARY CARE .
--- NOTE | 2016-09-10 20:05 | NUR ---
RADIOLOGY TECHNOLOGIST: CALLED RADIOLOGY AND SPOKE WT QUE TO FOLLOW UP FOR UPPER GI XRAY WT GASTROGRAFIN AND SAID IT WILL BE DONE IN AM AND NO NEED FOR CONSENT.
--- NOTE | 2016-09-10 20:20 | NUR ---
FABRIC CUTTER: SEEN AND EXAMINED BY DR. VILLALPANDO. ASKED MD IF WANT TO TRANSFER TO [place]/TELE PER GI RECOMMENDATION AND SAID TO KEEP IN ICU. ALSO ASKED IF WANT DOPPLER US FOR BLE AND SAID YES. NOTED AND CARRIED OUT.
--- NOTE | 2016-09-10 22:30 | NUR ---
ANESTHESIOLOGIST PHYSICIAN: F/C PLACED VIA STERILE TECHNIQUE AND TOLERATED FAIRLY. NOTED WT TEA COLORED URINE. PT VERBALLY RESPONSIVE BUT MORE DROWSY. WILL CONTINUE TO MONITOR.
[2016-09-10] MEDS ORDERED: DEXTROSE 50%-WATER 50 ML DISP.SYRIN ONE (23:33)
--- NOTE | 2016-09-10 23:45 | NUR ---
DESIGN MANAGER: NOTIFIED DR. VILLALPANDO OF PT's SUGAR AT 71. MORE LETHARGIC AT THIS TIME, SBP IN THE 60- 70s BUT IN THE 90s WITH THE DOPPLER. MD WT ORDER TO GIVE D50 X 1, CHANGE NS TO D5NS AT 150ML/HR, AND ABG STAT.
[2016-09-11] VITALS (98 sets, daily range): BP systolic 21–167; BP diastolic 11–80
[2016-09-11] MEDS ORDERED: IV D5/ 0.9% NACL 1,000 ML IV PRN
[2016-09-11] MEDS ORDERED: DEXTROSE 50%-WATER 50 ML DISP.SYRIN IVP ONE
--- NOTE | 2016-09-11 00:05 | NUR ---
CUTTER MACHINE: BLOOD SUGAR RECHECKED NOW AT 158.
--- NOTE | 2016-09-11 00:15 | NUR ---
AUTOMATIC TOE LASTER: CALLED AND NOTIFIED DR. VILLALPANDO OF LACTIC ACID=5.5. PT. IS VERY LETHARGIC AT THIS TIME. RELAYED ABG RESULTS: PH=6.918, PCO2=31.1, pO2=80.9, HCO3=6.2, BE= -25.3. MD HAYWARD ORDERS TO INTUBATE PT, LEVOPHED STD., GIVE 2 AMS OF BICARB IVP, PULMO CONSULT FOR VENT MANAGEMENT, OK TO USE PICC LINE, CVP READINGS. NOTED AND CARRIED OUT. 0017 DAUGHTER AMANDA MADE AWARE OF CURRENT POC AND AGREED TO ALL INTERVENTIONS. [address] ESQUIVEL AT BEDSIDE AND UPDATED PT STATUS.
[2016-09-11] MEDS ORDERED: SODIUM BICARBONATE SYR 50 MEQ/50 ML DISP.SYRIN ONE ×3 (00:20→14:41)
--- NOTE | 2016-09-11 00:20 | NUR ---
SLIP PRESSER: DR. WILDER FROM ER CAME TO FURTHER EVALUATE PT AND PERFORM INTUBATION. GIVEN ETOMIDATE 10 AND ROCK 60.
[2016-09-11] MEDS ORDERED: SODIUM BICARBONATE SYR 50 MEQ/50 ML DISP.SYRIN IV ONE ×2 (00:30→02:30)
--- NOTE | 2016-09-11 00:30 | NUR ---
HAIR BOILER: DR. ESQUIVEL MADE AWARE OF 1050CC GASTRIC CONTENTS IN BLACK COLOR VIA OGT TO LOW INTERMITTENT SUCTION.
[2016-09-11 00:42] LABS: ABG BASE EXCESS -25.3 mmol/L; ABG PCO2 31.1 mmHg (35.0-45.0); ABG PH 6.918 (7.350-7.450); ABG PO2 80.9 mmHg (75.0-100.0); COHb 1.2 % (0.5-1.5); MetHb 0.7 % (0.0-1.5); O2Hb 90.3 % (94.0-97.0); SITE, ABG Right Brachial; VENT MODE, BG 2L NC
--- NOTE | 2016-09-11 00:50 | NUR ---
RT PT INTUBATED BY MD WILDER WITH A 7.0 @ 22CM LIP. BREATH SOUNDS BILATERAL COARSE, POSITIVE CHEST RISE AND FALL. POSITIVE CO2 COLOR CHANGES. ETT SECURED WITH ANCHOR FAST. PT PLACED ON [facility] VENT WITH NOTED SETTING. VENT PLUGGED IN TO RED OUTLET. AMBU BAG AT [facility]. SUCTIONED MOD AMOUNT OF BLACK THICK SECRETIONS. NO SOB OR DISTRESS NOTED. WILL CONTINUE TO MONITOR. Addendum: 09/11/16 at 0054 by CHEL YOST RT Amended: Links added.
--- NOTE | 2016-09-11 01:00 | NUR ---
WEIGHBRIDGE OPERATOR: DR. ESQUIVEL SAID HE WANTS TO TAKE PT TO SURGERY FOR DIAGNOSTIC EXPLORATORY LAPAROTOMY. SPOKE WT DAUGHTER AMANDA AND GAVE CONSENT.
[2016-09-11] MEDS: LEVOFLOXACIN 250 MG /D5W 50 ML 250 MG in PREMIX 1 EA IV SCH (01:07)
[2016-09-11] MEDS ORDERED: Sodium Bicarbonate 150 MEQ in IV D5W 1,000 ML IV PRN (01:30)
[2016-09-11 01:32] LABS: BASOPHILS % (AUTO) 0.1 % (0.0-2.0); EOSINOPHILS % (AUTO) 0.3 % (0.0-6.0); HEMATOCRIT 33 % (33-45); HEMOGLOBIN 10.6 g/dL (11.5-14.8); LYMPHOCYTES # (AUTO) 0.6 /CMM (0.8-4.8); LYMPHOCYTES % (AUTO) 4.4 % (20.0-44.0); MEAN CORPUSCULAR HEMOGLOBIN 32 PG (26.0-33.0); MEAN CORPUSCULAR HGB CONC 33 g/dl (31.0-36.0); MEAN CORPUSCULAR VOLUME 98 fL (82-100); MONOCYTES # (AUTO) 0.4 /CMM (0.1-1.30); MONOCYTES % (AUTO) 2.8 % (2.0-12.0); NEUTROPHILS # (AUTO) 13.4 /CMM (1.8-8.9); NEUTROPHILS % (AUTO) 92.4 % (43.0-81.0); PLATELET COUNT (AUTO) 288 /CMM (150-450); RDW COEFFICIENT OF VARIATION 15.3 (11.5-15.0); RED BLOOD CELL COUNT(AUTO) 3.31 MIL/uL (4.0-5.2); WHITE BLOOD COUNT (AUTO) 14.5 K/uL (4.3-11.0)
[2016-09-11] MEDS ORDERED: NOREPINEPHRINE 4 MG/4 ML AMPUL IV ONE (01:47)
[2016-09-11 01:54] LABS: INR 1.24 (0.87-1.13); PROTHROMBIN TIME 13.4 SECS (9.5-12.7)
[2016-09-11] MEDS: NOREPINEPHRINE 8 MG in IV D5W 500 ML IV PRN ×2 (02:00→12:28)
--- NOTE | 2016-09-11 02:00 | NUR ---
MOTORCYCLE TECHNICIAN: PAGED PULMOLOGIST FOR ABG GAS RESULT AN HOUR AFTER INTUBATION.
[2016-09-11 02:04] LABS: ABG BASE EXCESS -24.5 mmol/L; ABG OXYGEN SATURATION 89.1 % (92.0-98.5); ABG PO2 73.4 mmHg (75.0-100.0); AaDO2 592.6 mmHg; COHb 1.6 % (0.5-1.5); MetHb 0.5 % (0.0-1.5); O2Hb 87.2 % (94.0-97.0); PEEP,BG 5 cm H2O; SITE, ABG Right Brachial; VENT MODE, BG AC 450/R14/100%/+5; VT, ABG 450 mL
--- NOTE | 2016-09-11 02:05 | NUR ---
REBAR WORKER: UNABLE TO SCAN PT WT LEVOPHED: STARTED LEVOPHED AT 5MCG/MIN BUT UNABLE TO SCAN PT AND MEDICATION BECAUSE ANESTHESIOLOGIST IS TRYING TO PERFORM A. LINE AT THIS TIME.
[2016-09-11] MEDS ORDERED: AZTREONAM 2 G in IV NS 0.9% 100 ML IV SCH (02:30)
[2016-09-11] MEDS ORDERED: IV NS 0.9% 1,000 ML IV PRN (02:30)
[2016-09-11] MEDS ORDERED: VANCOMYCIN 1 GM in IV D5W 250 ML IV SCH (02:30)
--- NOTE | 2016-09-11 02:30 | NUR ---
WHEAT AND OATS FLAKE MILLER: DR. HASTINGS CALLED AND MADE AWARE OF ABG RESULT S/P 1 HR AFTER INTUBATION WT ORDER TO GIVE 2AMPS OF BICARB ON TOP OF IVP WT BICARB AND LEAVE THE VENT SETTINGS IT IS.
[2016-09-11 02:32] LABS: BAND % (MANUAL) 67 % (0.0-5.0); LYMPHOCYTES % (MANUAL) 6 % (16-48); METAMYELOCYTES % 1 % (0-0); MONOCYTES % (MANUAL) 2 % (0-11.0); MYELOCYTES % 2 % (0-0); NEUTROPHILS % (MANUAL) 21 (42-76); REACTIVE LYMPHOCYTES 1 % (0-0)
--- NOTE | 2016-09-11 02:32 | NUR ---
MOBILE MARKETING SPECIALIST: DAUGHTER AT BED SIDE WITH SURGEON DR. ESQUIVEL AND ANESTHESIOLOGIST. 2 AMPS BICARB IVP GIVEN PER DR. HASTINGS'S ORDERS AFTER RELAYING LATEST ABG RESULTS. PER MD, LEAVE VENT SETTINGS IT IS.
[2016-09-11] MEDS ORDERED: VASOPRESSIN INJ 20 UNIT/ML VIAL ONE ×2 (02:41→22:27)
[2016-09-11 02:49] LABS: BILIRUBIN,TOTAL 0.8 mg/dL (0.2-1.0); CALCIUM, SERUM 6.8 mg/dL (8.5-10.1); CREATININE 2.1 mg/dL (0.6-1.3); TOTAL PROTEIN, SERUM 3.6 g/dL (6.4-8.2)
[2016-09-11 02:50] LABS: POTASSIUM 5.5 mmol/L (3.5-5.1)
[2016-09-11 02:52] LABS: ALBUMIN 1.4 g/dL (3.4-5.0)
[2016-09-11] MEDS: VASOPRESSIN INJ 50 UNIT in IV D5W 497.5 ML IV PRN ×2 (02:52→22:37)
[2016-09-11] MEDS ORDERED: PROPOFOL 100 ML IV ONE (03:02)
--- NOTE | 2016-09-11 03:05 | NUR ---
MENTAL HEALTH PROGRAM SPECIALIST: SURGEON AND ANESTHESIOLOGIST AT BEDSIDE. 02 SAT AT 79%. DAUGHTER AT BEDSIDE. PEEP SETTINGS CHANGED TO 7.
--- NOTE | 2016-09-11 03:15 | NUR ---
ASE MASTER MECHANIC: DR. ESQUIVEL WANTS DR. VILLALPANDO TO SEE AND EXAMINE PT. PER SURGEON, THEY CANNOT TAKE PT TO SURGERY SHE IS VERY UNSTABLE AT THIS TIME. PAGED DR. VILLALPANDO. SURGEON ALSO ORDERED 3 UNITS OF FFP.
[2016-09-11] MEDS ORDERED: VANCOMYCIN 1 GM VIAL ONE (03:16)
[2016-09-11] MEDS ORDERED: AZTREONAM 1 G VIAL ONE (03:26)
[2016-09-11] MEDS ORDERED: PROPOFOL 100 ML IV PRN (03:30)
[2016-09-11 03:45] LABS: ABG BASE EXCESS -19.1 mmol/L; ABG OXYGEN SATURATION 98.7 % (92.0-98.5); ABG PCO2 49.7 mmHg (35.0-45.0); ABG PH 6.982 (7.350-7.450); ABG PO2 212.5 mmHg (75.0-100.0); AaDO2 450.8 mmHg; COHb 1.2 % (0.5-1.5); O2Hb 96.5 % (94.0-97.0); PEEP,BG 5 cm H2O; SITE, ABG A-Line; VENT MODE, BG AC VENT; VT, ABG 450 mL
--- NOTE | 2016-09-11 03:48 | NUR ---
PROGRAMMING INSTRUCTOR: PT TAKEN TO SURGERY.
[2016-09-11] MEDS ORDERED: MIDAZOLAM HCL 2 MG/2ML VIAL ONE (04:08)
[2016-09-11] MEDS ORDERED: ROCURONIUM BROMIDE 50 MG/5 ML ONE (04:11)
--- NOTE | 2016-09-11 05:37 | NUR ---
CELLARS SUPERVISOR: PT CAME BACK FROM SURGERY. SURGICAL DRESSING ON ABDOMINAL SITE DRY CLEAN AND INTACT WT NO ACTIVE BLEEDING.
--- NOTE | 2016-09-11 05:40 | NUR ---
DIE ASSEMBLER: VERIFIED WT DR. ESQUIVEL IF NEED TO TRANSFUSE 3 FFPs AND SAID "YES".
[2016-09-11 05:53] LABS: BASOPHILS % (AUTO) 0.1 % (0.0-2.0); EOSINOPHILS % (AUTO) 0.1 % (0.0-6.0); HEMATOCRIT 27 % (33-45); HEMOGLOBIN 8.8 g/dL (11.5-14.8); LYMPHOCYTES # (AUTO) 0.6 /CMM (0.8-4.8); LYMPHOCYTES % (AUTO) 4.7 % (20.0-44.0); MEAN CORPUSCULAR HEMOGLOBIN 32 PG (26.0-33.0); MEAN CORPUSCULAR HGB CONC 32 g/dl (31.0-36.0); MEAN CORPUSCULAR VOLUME 98 fL (82-100); MONOCYTES # (AUTO) 0.3 /CMM (0.1-1.30); MONOCYTES % (AUTO) 2.5 % (2.0-12.0); NEUTROPHILS # (AUTO) 11.4 /CMM (1.8-8.9); NEUTROPHILS % (AUTO) 92.6 % (43.0-81.0); PLATELET COUNT (AUTO) 229 /CMM (150-450); RED BLOOD CELL COUNT(AUTO) 2.79 MIL/uL (4.0-5.2); WHITE BLOOD COUNT (AUTO) 12.3 K/uL (4.3-11.0)
[2016-09-11 06:04] LABS: CREATININE 1.9 mg/dL (0.6-1.3); POTASSIUM 5.3 mmol/L (3.5-5.1)
[2016-09-11 06:08] LABS: CALCIUM, SERUM 5.9 mg/dL (8.5-10.1)
--- NOTE | 2016-09-11 06:53 | NUR ---
RT PER JACOB COSTELLO. POST ABG NO VENT CHANGES WANTED BY MD HASTINGS. WILL ENDORSE TO DAY SHIFT.
[2016-09-11 07:16] LABS: ABG BASE EXCESS -19.3 mmol/L; ABG OXYGEN SATURATION 90.1 % (92.0-98.5); ABG PCO2 41.3 mmHg (35.0-45.0); ABG PH 7.025 (7.350-7.450); ABG PO2 64.8 mmHg (75.0-100.0); AaDO2 606.9 mmHg; COHb 1.6 % (0.5-1.5); MetHb 0.2 % (0.0-1.5); O2Hb 88.5 % (94.0-97.0); PEEP,BG 5 cm H2O; SITE, ABG Right Radial; VT, ABG 450 mL
--- NOTE | 2016-09-11 07:20 | NUR ---
LAY OUT FORMER NOTE Received patient obtunded, off Diprivan, responds only to deep pain, FABIO noted, 3mm brisk. ETT intact, 94% O2 sat on FIO2 100%. With OGT intact, connected to LIS, still noted with moderate amount of black residuals. ASHKAN PICC intact. Foely cath intact, noted with dark katherine colored urine drained to BSD. On Levo @ 7mcg and Vaso 0.04mcg, will titrate pressors accordingly. Also on Sodium bicarb with 3 amps at 150.
[2016-09-11] MEDS: PANTOPRAZOLE 40 MG TABLET.DR PO SCH (07:30)
[2016-09-11 07:48] LABS: BAND % (MANUAL) 45 % (0.0-5.0); LYMPHOCYTES % (MANUAL) 4 % (16-48); METAMYELOCYTES % 3 % (0-0); MONOCYTES % (MANUAL) 3 % (0-11.0); NEUTROPHILS % (MANUAL) 45 (42-76)
[2016-09-11] MEDS ORDERED: Calcium Gluconate 1GM/10ML 4.65 MEQ in IV D5W 50 ML IV ONE (08:00)
--- NOTE | 2016-09-11 08:06 | NUR ---
PT. UNSTABLE PER SHANNAN JAMES
[2016-09-11] MEDS: METRONIDAZOLE 500MG/ NS 100ML 500 MG in PREMIX 1 EA IV SCH ×3 (08:17→21:27)
[2016-09-11] MEDS ORDERED: FEE PK DOSING 1 MIN EA MC ONE ×2 (08:19→08:33)
[2016-09-11] MEDS: FLUTICASONE PROPIONATE 16 GM BOTTLE NS SCH (08:38)
[2016-09-11] MEDS: GABAPENTIN 300 MG CAPSULE PO SCH (08:38)
[2016-09-11] MEDS: FLUTICASONE/VILANTEROL 1 EACH BLST.W.DEV IH SCH (08:38)
[2016-09-11] MEDS: CARISOPRODOL 350 MG TABLET PO SCH ×3 (08:38→16:49)
--- NOTE | 2016-09-11 09:01 | NUR ---
MEDIA CENTER ASSISTANT NOTE Spoke with Dr. Canada informed re: LA 9.6, aware patient still on Na Bicarb drip 3amp with D5W @ 150. NNO at this time. Also made aware re: discussion for code status, will change to chem code, no compression, no shock, do not treat asystole.
[2016-09-11 09:32] LABS: BILIRUBIN,DIRECT 0.4 mg/dL (0.0-0.2)
[2016-09-11 10:08] LABS: ABG BASE EXCESS -15.3 mmol/L; ABG OXYGEN SATURATION 97.3 % (92.0-98.5); ABG PCO2 35.5 mmHg (35.0-45.0); ABG PH 7.154 (7.350-7.450); ABG PO2 104.4 mmHg (75.0-100.0); AaDO2 573.1 mmHg; COHb 2.6 % (0.5-1.5); MetHb 0.6 % (0.0-1.5); O2Hb 94.2 % (94.0-97.0); PEEP,BG 5 cm H2O; SITE, ABG A-Line; VT, ABG 450 mL
[2016-09-11] MEDS ORDERED: ROCURONIUM BROMIDE 50 MG/5 ML IV ONE (10:38)
[2016-09-11] MEDS ORDERED: ETOMIDATE 2 MG/ML VIAL IV ONE (10:38)
--- NOTE | 2016-09-11 11:00 | NUR ---
CAPTAIN ASSISTANT NOTE Turned off Vaso @ 1000, but noted with SBP 80's through Alesia, restarted Levo for BP support, will continue to monitor BP.
--- NOTE | 2016-09-11 11:31 | NUR ---
SIZE CHANGER NOTE Spoke with pharmacy, said to DC IVF with Bicarb for ABG pH >7.15, latest pH 7.154, informed Dr. Canada and asked what IVF to change, said to continue IVF with Bocarb still, will inform pharmacy.
--- NOTE | 2016-09-11 11:50 | NUR ---
DIRECTOR HARDWARE NOTE S/E by Dr. Canada, will change IVF to Sodium acetate and change Protonix to 40 IV BID. S/E by Dr. Chester, ABG @ 5515.
[2016-09-11] MEDS: AZTREONAM 1 G in IV NS 0.9% 100 ML IV SCH ×2 (12:29→21:26)
[2016-09-11] MEDS: Sodium Acetate 150 MEQ in IV D5W 1,000 ML IV PRN ×2 (12:43→21:16)
--- NOTE | 2016-09-11 13:13 | NUR ---
WOUND CARE CONSULT PATIENT SEEN AND SKIN INTEGRITY ASSESSMENT DONE. PATIENT PRESENTS WITH RIGHT OUTER EAR CRUSTED SCAB. RECOMMEND KEEP CLEAN AND DRY AND OFF LOAD PRESSURE. RECOMMEND TURNING SCHED Q 2 HOURS AND BILATERAL HEEL FLOATING. PATIENT ON BRAD ISOFLEX LOW AIRLOSS MATTRESS. PATIENT WITH CURRENT YURIY AT 11. ALL SKIN MANAGEMENT DISCUSSED WITH NURSING AT THE BEDSIDE.
[2016-09-11 14:18] LABS: ABG BASE EXCESS -12.8 mmol/L; ABG PCO2 33.5 mmHg (35.0-45.0); ABG PH 7.228 (7.350-7.450); ABG PO2 85.3 mmHg (75.0-100.0); AaDO2 594.2 mmHg; PEEP,BG 5 cm H2O; SITE, ABG A-Line; VT, ABG 450 mL
[2016-09-11] MEDS ORDERED: PHENYLEPHRINE 40 MG in IV D5W 250 ML IV PRN (15:30)
[2016-09-11 15:57] LABS: EOSINOPHILS % (AUTO) 0.1 % (0.0-6.0); HEMATOCRIT 22 % (33-45); HEMOGLOBIN 7.5 g/dL (11.5-14.8); LYMPHOCYTES # (AUTO) 0.3 /CMM (0.8-4.8); LYMPHOCYTES % (AUTO) 5.6 % (20.0-44.0); MEAN CORPUSCULAR HEMOGLOBIN 32 PG (26.0-33.0); MEAN CORPUSCULAR HGB CONC 34 g/dl (31.0-36.0); MEAN CORPUSCULAR VOLUME 96 fL (82-100); MONOCYTES # (AUTO) 0.1 /CMM (0.1-1.30); MONOCYTES % (AUTO) 2.1 % (2.0-12.0); NEUTROPHILS # (AUTO) 4.6 /CMM (1.8-8.9); NEUTROPHILS % (AUTO) 92.2 % (43.0-81.0); PLATELET COUNT (AUTO) 149 /CMM (150-450); RDW COEFFICIENT OF VARIATION 14.7 (11.5-15.0); RED BLOOD CELL COUNT(AUTO) 2.32 MIL/uL (4.0-5.2)
[2016-09-11] MEDS: FAMOTIDINE/PF INJ 20 MG/2 ML VIAL IV SCH (16:52)
[2016-09-11 16:57] LABS: ALBUMIN 1.7 g/dL (3.4-5.0); BILIRUBIN,TOTAL 1.2 mg/dL (0.2-1.0); CALCIUM, SERUM 6.1 mg/dL (8.5-10.1); CREATININE 2.3 mg/dL (0.6-1.3); MAGNESIUM 1.9 mg/dL (1.8-2.4); PHOSPHORUS 5.4 mg/dL (2.5-4.9); POTASSIUM 3.7 mmol/L (3.5-5.1); TOTAL PROTEIN, SERUM 3.8 g/dL (6.4-8.2)
[2016-09-11 16:58] LABS: BAND % (MANUAL) 39 % (0.0-5.0); LYMPHOCYTES % (MANUAL) 9 % (16-48); MONOCYTES % (MANUAL) 12 % (0-11.0); NEUTROPHILS % (MANUAL) 40 (42-76)
[2016-09-11] MEDS: NOREPINEPHRINE 16 MG in IV D5W 500 ML IV PRN ×2 (17:11→23:59)
[2016-09-11] MEDS: PHENYLEPHRINE 80 MG in IV D5W 250 ML IV PRN (17:22)
--- NOTE | 2016-09-11 17:29 | NUR ---
TRAINING PROFESSIONAL NOTE Spoke with Dr. Canada and made aware for Hgb 7.5, no new order at this time. BMP results aware, awaiting lactic acid, AST, ALT and will order INR and Fibrinogen.
[2016-09-11 18:08] LABS: INR 1.55 (0.87-1.13); PROTHROMBIN TIME 17.1 SECS (9.5-12.7)
[2016-09-11] MEDS: HYDROMORPHONE 1 MG/1 ML DISP.SYRIN IV PRN (19:22)
[2016-09-11 20:13] LABS: ABG BASE EXCESS -10.7 mmol/L; ABG OXYGEN SATURATION 95.5 % (92.0-98.5); ABG PCO2 26.6 mmHg (35.0-45.0); ABG PH 7.336 (7.350-7.450); ABG PO2 81.7 mmHg (75.0-100.0); AaDO2 604.7 mmHg; COHb 2.3 % (0.5-1.5); MetHb 0.3 % (0.0-1.5); PEEP,BG 5 cm H2O; SITE, ABG A-Line; VENT MODE, BG AC 24; VT, ABG 500 mL
--- NOTE | 2016-09-11 22:04 | NUR ---
RN:ICU: ENDORSED CARE TO ED. INSTRUCTED NURSE THAT WANDER ORDERED 2 UNITS PRBC AND 1 UNITS OF PLASMA. MICHELLE FROM LAB UNABLE TO ASSIST IN ORDERED BLOOD AND WILL NOT RELEASE BLOOD WITHOUT ORDER. ATTEMPTED TO WRITE A TO ORDER ON PAPER TO EXPEDITE PROCESS BUT BLOOD BANK WILL NOT ACCEPT. ASKED SEVERAL NURSES HOW TO ORDER BLOOD PRODUCTS WITHOUT SUCCESS. Addendum: 09/11/16 at 2331 by DILLON NUNES RN [email or web address] WITH KATERINA FROM BLOOD BANK ISSUE RESOLVED PRODUCTS ORDERED 1ST UNIT PRBC ADMIN BY JACOB ET.
--- NOTE | 2016-09-11 23:31 | NUR ---
3D DESIGNER DF I ASSUMED CARE OF PT AT 2320 CLARIFIED CODE STATUS WITH IN HOME CAREGIVER/PER DAY RN DR PIZARRO DNP FAMILY WOULD LIKE CHEMICAL CODE. PT UNRESPONSIVE TO STIMULI. PT WITH SPONTANEOUS EYE OPENING,DOES NOT TRACK,PUPILS SLUGGISH TO LIGHT @ 2MM, PT WITHDRAWS TO DEEP STIMULI WITH FACIAL GRIMACING. WHEN I ASKED IF PT CAN HEAR ME SPEAKING SHE NODS HER HEAD YES. PT INTUBATED WITH FIO2 OF 100% O2 SAT ON ABG 95% ABG DONE AROUND 1930 MD AWARE OF RESULTS. PT SINUS TACH ON MONITOR AT 122BPM, BP VIA RIGHT WRIST RAMOS OF 102/54 PT ON PRESSOR SUPPORT JAYSON @300MCG/LEVO@40 MCG VASOPRESSIN AT 0.04 UNITS HR BP MONITORED VIA RAMOS. PT WITH SURGICAL DRESSING TO ABDOMEN C/D/I. PT WITH OGT TO LIS WITH DARK,TARRY BROWN FLUID MOD IN AMOUNT SGT MD AWARE.HYPOACTIVE BS NOTED. PT WITH F/C WITH DECREASED URINE OUTPUT MD AWARE NEPHROLOGY CONSULT/GI CONSULT IN AM.
[2016-09-12] VITALS (49 sets, daily range): BP systolic 36–133; BP diastolic 19–94
[2016-09-12] MEDS ORDERED: VANCOMYCIN 0.75 GM in IV D5W 250 ML IV SCH ×2
[2016-09-12] MEDS: LEVOFLOXACIN 250 MG /D5W 50 ML 250 MG in PREMIX 1 EA IV SCH (00:02)
--- NOTE | 2016-09-12 00:05 | NUR ---
MANAGER CUSTOM DF PT DAUGHTER DARCY UPDATED REGARDING PROGNOSIS/CRITICAL CONDITION.
--- NOTE | 2016-09-12 00:05 | NUR ---
PRINT SHOP STENOGRAPHER DF PT 2/2 UPRBC TRANSFUSED PREVIOUSLY NOTED OGT TO LIS WITH DARK TARRY BLOOD VIA OGT. SGBay CANALES MOEIN AWARE OF GIB.
[2016-09-12] MEDS: PHENYLEPHRINE 80 MG in IV D5W 250 ML IV PRN ×3 (00:44→09:06)
[2016-09-12] MEDS: HYDROMORPHONE 1 MG/1 ML DISP.SYRIN IV PRN (01:18)
--- NOTE | 2016-09-12 01:35 | NUR ---
ALMOND BLANCHER OPERATOR DF PT MEDICATED WITH DILAUDID 1MG IVP PT NODDING HER HEAD TO RN/DAUGHTER THAT SHE IS IN PAIN. WILL MONITOR FOR EFFECT.
--- NOTE | 2016-09-12 01:40 | NUR ---
BLUEPRINT TRIMMER DF PT WITH DECREASED URINE OUTPUT OF 15-30ML/HR URINE WITH SEDIMENT.ORDER OBTAINED IRRIGATE BLADDER MANUAL IRRIGATION DOEN WITH STERILE TECHNIQUE URINE OUTPUT OF 225ML NOTED. WILL CONTINUE TO MONITOR Addendum: 09/12/16 at 0256 by DILLON NUNES RN CORRECTION ABOVE ENTRY U/O 25 ML WILL PAGE IMAGING NURSE HOSPITALIST. Addendum: 09/12/16 at 0311 by DILLON NUNES RN DR JUAREZ TAPIA OF URINE OUTPUT WILL FOLLOW UP IN AM.
--- NOTE | 2016-09-12 03:12 | NUR ---
OFFSHORING MANAGER DF DIFFICULT TO OBTAIN CONTINUOUS PULSE OX READING PT ON MULTIPLE PRESSORS. PULSE OX ON EAR WITH READING OF 94-96%.ABG DONE AT 1999 SEE RESULTS.
--- NOTE | 2016-09-12 03:20 | NUR ---
DINKEY ENGINEER DF PT WITH 1 UNIT PLASMA ORDER SINCE 09/11/16. BLOOD BANK WOULD NOT RELEASE 1UNIT FFP. REORDER 1 U FFP.INFORMED BLOOD BANK ORDER IS CORRECT AND TO RELEASE FFP PER MD ORDER. [facility] UNABLE TO PROCESS ORDER A PLASMA ORDER MESSAGE TO USE STANDING TRANSFUSION ORDER EXPLAINED THIS TO BLOOD BANK MULTIPLE TIMES. AWAITING RELEASE OF BLOOD PRODUCT.
[2016-09-12] MEDS ORDERED: NOREPINEPHRINE 4 MG/4 ML AMPUL IV ONE (03:40)
[2016-09-12] MEDS ORDERED: PHENYLEPHRINE 10 MG/ML VIAL ONE (03:42)
[2016-09-12] MEDS: AZTREONAM 1 G in IV NS 0.9% 100 ML IV SCH (04:33)
[2016-09-12] MEDS: NOREPINEPHRINE 16 MG in IV D5W 500 ML IV PRN (04:45)
[2016-09-12 04:57] LABS: BILIRUBIN,TOTAL 1.8 mg/dL (0.2-1.0); CREATININE 2.7 mg/dL (0.6-1.3); EOSINOPHILS % (AUTO) 0.2 % (0.0-6.0); HEMATOCRIT 34 % (33-45); HEMOGLOBIN 11.4 g/dL (11.5-14.8); LYMPHOCYTES # (AUTO) 0.6 /CMM (0.8-4.8); LYMPHOCYTES % (AUTO) 3.1 % (20.0-44.0); MEAN CORPUSCULAR HEMOGLOBIN 32 PG (26.0-33.0); MEAN CORPUSCULAR HGB CONC 34 g/dl (31.0-36.0); MEAN CORPUSCULAR VOLUME 93 fL (82-100); MONOCYTES # (AUTO) 0.2 /CMM (0.1-1.30); MONOCYTES % (AUTO) 1.1 % (2.0-12.0); NEUTROPHILS # (AUTO) 17.6 /CMM (1.8-8.9); NEUTROPHILS % (AUTO) 95.6 % (43.0-81.0); PLATELET COUNT (AUTO) 90 /CMM (150-450); POTASSIUM 4.8 mmol/L (3.5-5.1); RDW COEFFICIENT OF VARIATION 16.8 (11.5-15.0); TOTAL PROTEIN, SERUM 3.3 g/dL (6.4-8.2); WHITE BLOOD COUNT (AUTO) 18.4 K/uL (4.3-11.0)
[2016-09-12] MEDS: METRONIDAZOLE 500MG/ NS 100ML 500 MG in PREMIX 1 EA IV SCH (05:13)
[2016-09-12 05:30] LABS: ALBUMIN 1.3 g/dL (3.4-5.0); CALCIUM, SERUM 5.8 mg/dL (8.5-10.1); INR 2.23 (0.87-1.13); PROTHROMBIN TIME 25.1 SECS (9.5-12.7)
[2016-09-12] MEDS: Sodium Acetate 150 MEQ in IV D5W 1,000 ML IV PRN (05:57)
--- NOTE | 2016-09-12 06:13 | NUR ---
AGRICULTURAL EQUIPMENT SALESPERSON DF 1 UNIT PLASMA STARTED TRANSFUSING PER ORDERS 1/2 FFP. NO S/S OF ADVERSE RX NOTED.PT AND PLASMA VERIFIED BY 2 RN,S. Addendum: 09/12/16 at 0622 by DILLON NUNES RN PLASMA ORDER CLARIFIED ONLY 1 UNIT OF PLASMA.
--- NOTE | 2016-09-12 06:16 | NUR ---
INTERVENTION MANAGER DF RECEIVED CRITICAL VALUE OF CALCIUM 5.8/ALBUMIN OF 1.3/PT ANURIC WITH URINE OUTPUT OF ABOUT 40ML. DR PIZARRO AWARE OF RESULTS WILL FOLLOW UP WITH PT THIS AM. PT REMAINS ON MAX DOSE OF LEVOPHED/NEOSYNEPHRINE/VASOPRESSIN 0.04 UNITS/HR. MANUAL BP OF 107/43 RAMOS FLUCTUATING/POSITIONAL.
--- NOTE | 2016-09-12 07:12 | NUR ---
CODING EDUCATOR DF LACTIC ACID DRAWN AWAITING LAB RESULTS.
[2016-09-12] MEDS ORDERED: IV NS 0.9% 1,000 ML BAG IV STA (07:57)
[2016-09-12] MEDS ORDERED: IV NS 0.9% 500 ML IV ONE (08:00)
[2016-09-12 08:14] LABS: ABG BASE EXCESS -16.2 mmol/L; ABG OXYGEN SATURATION 94.9 % (92.0-98.5); ABG PCO2 24.9 mmHg (35.0-45.0); ABG PH 7.219 (7.350-7.450); ABG PO2 86.2 mmHg (75.0-100.0); AaDO2 601.9 mmHg; COHb 0.7 % (0.5-1.5); MetHb 0.8 % (0.0-1.5); O2Hb 93.5 % (94.0-97.0); PEEP,BG 5 cm H2O; SITE, ABG A-Line; VT, ABG 500 mL
[2016-09-12 08:22] LABS: BAND % (MANUAL) 41 % (0.0-5.0); LYMPHOCYTES % (MANUAL) 7 % (16-48); MONOCYTES % (MANUAL) 12 % (0-11.0); NEUTROPHILS % (MANUAL) 40 (42-76)
[2016-09-12] MEDS: CARISOPRODOL 350 MG TABLET PO SCH (08:28)
[2016-09-12] MEDS: FLUTICASONE/VILANTEROL 1 EACH BLST.W.DEV IH SCH (08:28)
[2016-09-12] MEDS: GABAPENTIN 300 MG CAPSULE PO SCH (08:28)
[2016-09-12] MEDS: FLUTICASONE PROPIONATE 16 GM BOTTLE NS SCH (08:28)
[2016-09-12] MEDS: FAMOTIDINE/PF INJ 20 MG/2 ML VIAL IV SCH (08:29)
[2016-09-12] MEDS ORDERED: SODIUM BICARBONATE SYR 50 MEQ/50 ML DISP.SYRIN IV ONE (08:37)
--- NOTE | 2016-09-12 09:41 | NUR ---
SHELTER MONITOR NOTE 0735: Received patient able to open eyes through name. But noted with SBP 40's on [place] and NIBP, informed Dr. Canada, patient on max dose of Levo, Jensen and Vaso. Also Lactic acid 15.4. With order for 1500mL bolus. ETT intact, AC 24 500 100% +5, Sat 91%, unable to get accurate realtime O2 sat due to cold extremities but 91% when in good waveform. With Larios cath intact, noted with minimal dark katherine colored urine. ASHKAN PICC intact. Right radial A line intact. Will continue to monitor patient for changes. 0820: ABG done,. made MD aware, with order for 1amp Bicarb, given as ordered. 0940: S/E by Dr. Canada, family at bedside, discussed re: the POC. Family verbalized understanding re: the patient's condition. Patient is no more chem code and now DNR.
[2016-09-12] MEDS ORDERED: HYDROMORPHONE INJ 2 MG/ML DISP.SYRIN IV PRN (11:30)
[2016-09-12] MEDS ORDERED: LORAZEPAM INJ 2 MG/ML VIAL IV PRN (11:30)
[2016-09-12] MEDS ORDERED: DC PROPOFOL WHEN EXTUBATED XX PRN (12:00)
--- NOTE | 2016-09-12 12:18 | NUR ---
PT PRONOUNCED . DNR/DNI STATUS. ON COMFORT MEASURES. JUST EXTUBATED TERMINALLY. FAMILY AT BEDSIDE. MONITOR SHOWS ASYSTOLE. NO AUDIBLE HEART TONES. NO OBTAINABLE BP WITH INTRA ARTERIAL PRESSURE MONITORING. NO RESPIRATORY EFFORT. PUPILS FIXED AND DILATED
--- NOTE | 2016-09-12 12:21 | NUR ---
METAL CEILING BUILDER NOTE 1142: Family decided to take out all of the pressors and will remain on ETT to vent. 1216: Dilaudid and Ativan given as ordered. Removed ETT per family, ordered by doctor for terminal extubation. Removed ETT by CN, family at bedside. Will keep patient comfortable. 1218: Patient , CN made MD aware.
[2016-09-12] MEDS ORDERED: HYDROMORPHONE INJ 2 MG/ML DISP.SYRIN IV ONE (12:30)
--- NOTE | 2016-09-12 13:10 | NUR ---
INSPECTOR PACKER GLASS CONTAINER NOTE Cleaned body, awaiting mortuary to lemon picker body, said will be here in an hour to one and half hour.
--- NOTE | 2016-09-12 14:25 | NUR ---
Body picked up by [employer] rep. Verified body with another nurse.
--- NOTE | 2016-09-12 18:31 | NUR ---
Picked up meds from pharmacy, picked up wallet from safe. Belongings picked up by daughter Nelly, checked everything and signed belongings list.
[2016-09-14 12:12] LABS: HEPATITIS Be AB Negative (Negative)
== END 2016-09-12 12:18 | disposition expired | DRG 853 ==
LOC: ER 19:06 → TELE 22:35 → ICU 09-10 08:22
PROVIDERS: ADMIT Internal Medicine; ATTEND Internal Medicine
PROC: 30233N1 Transfusion of Nonautologous Red Blood Cells into Peripheral Vein, Percutaneous Approach (ICD-10-PCS; 2016-09-09)
PROC: 5A1945Z Respiratory Ventilation, 24-96 Consecutive Hours (ICD-10-PCS; 2016-09-11)
PROC: 0BH17EZ Insertion of Endotracheal Airway into Trachea, Via Natural or Artificial Opening (ICD-10-PCS; 2016-09-11)
PROC: 30233K1 Transfusion of Nonautologous Frozen Plasma into Peripheral Vein, Percutaneous Approach (ICD-10-PCS; 2016-09-11)
PROC: 02HV33Z Insertion of Infusion Device into Superior Vena Cava, Percutaneous Approach (ICD-10-PCS; 2016-09-11)
PROC: B548ZZA Ultrasonography of Superior Vena Cava, Guidance (ICD-10-PCS; 2016-09-11)
PROC: 0WJP0ZZ Inspection of Gastrointestinal Tract, Open Approach (ICD-10-PCS; principal; 2016-09-11 02:00)
DX: A41.9 Sepsis, unspecified organism (principal); G92 Toxic encephalopathy; N17.0 Acute kidney failure with tubular necrosis; R65.21 Severe sepsis with septic shock; J96.02 Acute respiratory failure with hypercapnia; K72.01 Acute and subacute hepatic failure with coma; E87.1 Hypo-osmolality and hyponatremia; E87.2 Acidosis; E44.0 Moderate protein-calorie malnutrition; F11.20 Opioid dependence, uncomplicated; K55.9 Vascular disorder of intestine, unspecified; D68.9 Coagulation defect, unspecified; I74.8 Embolism and thrombosis of other arteries; J44.9 Chronic obstructive pulmonary disease, unspecified; K58.9 Irritable bowel syndrome, unspecified; I10 Essential (primary) hypertension; I25.10 Atherosclerotic heart disease of native coronary artery without angina pectoris; E03.9 Hypothyroidism, unspecified; Z88.0 Allergy status to penicillin; E86.0 Dehydration; E78.5 Hyperlipidemia, unspecified; E87.5 Hyperkalemia; E87.70 Fluid overload, unspecified; E86.1 Hypovolemia; G89.29 Other chronic pain; M54.40 Lumbago with sciatica, unspecified side; M79.7 Fibromyalgia; Z66 Do not resuscitate; N18.9 Chronic kidney disease, unspecified; I12.9 Hypertensive chronic kidney disease with stage 1 through stage 4 chronic kidney disease, or unspecified chronic kidney disease; M51.25 Other intervertebral disc displacement, thoracolumbar region; I73.00 Raynaud's syndrome without gangrene; I70.0 Atherosclerosis of aorta; Z87.891 Personal history of nicotine dependence; Z79.899 Other long term (current) drug therapy
CPT/HCPCS: 31720; 36415; 36569; 36600; 70450-TC; 71010-TC; 72128-TC; 80048-TC; 80053-TC; 80061-TC; 80076-TC; 80305; 81000-TC; 82248-TC; 82803-TC; 82962-TC; 83605-TC; 83690-TC; 83735-TC; 83880; 83935-TC; 84100-TC; 84300-TC; 84484-TC; 85025-TC; 85385-TC; 85610-TC; 85730-TC; 86704; 86705; 86706; 86707; 86709; 86709-TC; 86850-TC; 86921-TC; 87040-TC; 87070-TC; 87081-TC; 87350; 88305-TC; 93307-TC; 93925-TC; 93970-TC; 94002-TC; 94003-TC; 99082-TC; A4216; A4606; A6402; A6403; C1751; G0480; J0610; J0744; J1170; J1956; J2060; J2250; J2370; J2405; J2704; J3010; J3370; J3490; J7030; J7040; J7042; J7050; J7060; J7070; P9016-BL; P9017-BL; Z7610